=== PATIENT | male | born 1945 | race Caucasian/White ===

== ENCOUNTER 2017-03-07 07:21 | Inpatient (IN) | payer MEDICARE, OTHER ==
[2017-03-07] VITALS (13 sets, daily range): BP systolic 124–156; BP diastolic 80–102; PULSE 72–93; RESP 16–20; TEMP 98.1–98.6; O2SAT 96–97
[~2017-03-07] VITALS: Ht 172.7 cm; Wt 79.5 kg
[2017-03-07] MEDS ORDERED: IOHEXOL 350 MG/ML 50 ML BTL (for Cath Lab) OTHER ONE (07:22)
[2017-03-07 08:22] LABS: BASOPHIL % 0.5 % (0.0-2.0); HEMATOCRIT 39.4 % (39.0-51.0); HEMO FLAGS DIFF FINAL; LYMPH % 18.7 % (9.0-44.0); MEAN CELL VOLUME 99.5 FL (80.0-100.0); MEAN CORPUSCULAR HEMOGLOBIN 33.4 PG (27.0-34.0); MEAN CORPUSCULAR HGB CONC 33.6 % (32.0-36.0); MONO % 5.7 % (0.0-8.0); NEUT % 75.1 % (16.0-70.0); PLATELET COUNT 205 TH/MM3 (150-450); RED BLOOD COUNT 3.96 MIL/MM3 (4.50-5.90); RED CELL DISTRIBUTION WIDTH 13.2 % (11.6-17.2); WHITE BLOOD COUNT 10.6 TH/MM3 (4.0-11.0)
[2017-03-07 08:29] LABS: APTT (PATIENT) 30.3 SEC (24.3-30.1); INTERNATIONAL NORMALIZED RATIO 0.9 RATIO; PROTHROMBIN TIME - PATIENT 10.4 SEC (9.8-11.6)
[2017-03-07] MEDS: NS 1000P @30 MLS/HR (KVO) IV SCH (08:30)
[2017-03-07] MEDS ORDERED: ALBU0.08 NEB (08:44)
[2017-03-07] MEDS ORDERED: IPRA0.02 NEB (08:44)
[2017-03-07] MEDS ORDERED: GABA300C5 PO (08:44)
[2017-03-07] MEDS ORDERED: MELO-1 PO (08:44)
[2017-03-07] MEDS ORDERED: ASPI81CH37 CHEW (08:44)
[2017-03-07] MEDS ORDERED: NITR1SUB3 SL (08:44)
[2017-03-07] MEDS ORDERED: ATOR40TA16 PO (08:44)
[2017-03-07] MEDS ORDERED: ISOS30TA3 PO (08:44)
[2017-03-07] MEDS ORDERED: FURO40TA PO (08:44)
[2017-03-07] MEDS ORDERED: CARB200T PO (08:44)
[2017-03-07] MEDS ORDERED: ONDA1TAB17 PO (08:44)
[2017-03-07] MEDS ORDERED: TRAM50TA PO (08:44)
[2017-03-07] MEDS ORDERED: CLOP75TA PO (08:44)
[2017-03-07] MEDS ORDERED: PHEN100C PO (08:44)
[2017-03-07 08:54] LABS: BICARBONATE 27.4 MEQ/L (21.0-32.0); POTASSIUM 3.8 MEQ/L (3.5-5.1)
[2017-03-07] MEDS ORDERED: HEPARIN SODIUM - IV 10,000 UNITS/10 ML VIAL ONE (09:03)
[2017-03-07] MEDS ORDERED: HEPARIN-NS/PF INJ 1,000 ML ONE (09:03)
[2017-03-07] MEDS ORDERED: NITROGLYCERIN INJ 5 ML ONE (09:04)
[2017-03-07] MEDS ORDERED: HEPARIN-NS/PF INJ 500 ML ONE (09:23)
[2017-03-07] MEDS ORDERED: MIDAZOLAM HCL 2 MG/2 ML VIAL ONE (09:24)
[2017-03-07] MEDS ORDERED: HEPARIN-D5W 25,000 U/250 ML 250 ML ONE (10:04)
[2017-03-07] MEDS ORDERED: HEPARIN-D5W 25,000 U/250 ML 250 ML IV ONE (10:30)
[2017-03-07] MEDS ORDERED: MISC INFORMATION XX ONE (10:30)
[2017-03-07] MEDS ORDERED: BACITRACIN OINT 0.9 GM PKT TOP ONE ×2 (10:30→11:15)
--- NOTE | 2017-03-07 10:31 | CATHPROC ---
[facility] HIS Report Study Information Study Number Admission Scheduled Start Study Start [id number] Mar 07 2017 7:21AM 03/07/2017 Mar 07 2017 9:16AM [place] [facility] Cardiac Catheterization Admit Source Facility Department Other [facility] - Coding Specialist Physician and Clinical Staff Initial Jose Garcia Mri Special Procedures TechnologistJessica Schaffer,NASRIN Mri Special Procedures TechnologistRocio Hernandez RN Other Emre ALEXANDRA, Jameel Recorder Carli Cruz,SENIOR INTERACTIVE DEVELOPER TECH2 Scrub Raya Freed,RT(R) (BS) Procedures Performed Procedure Location (Site) Vessel Name Coronary Angiograms LCA Left Coronary Coronary Angiograms RCA Right Coronary Equipment Time Suture Polisher Description Size Mfg Part Number Used/Scraped TRANSDUCER, TRUWAVE [id number] 09:41 [employer] COLIN * Used W/STOCKCOCK *[id number] *[id number] *[id number] *[id number] 09:41 [employer]opio PACK, CCL CUSTOM * Used *[id number] 09:41 [employer] SUPPORT, ARTERIAL ADULT [id number] *[id number] Used [id number] 09:41 [employer] PACER PEN, SKIN DUAL W/ RULER * Used *[id number] BAND, RADIAL COMPRESSION TR [id number] 10:08 Spark Etail 29CM Used LARGE 29 *[id number] SHEATH, FR6 RADIAL PRELUDE 09:41 [employer] FR 6 [id number] Used EASE 11CM [id number] 09:41 [employer] WIRE, EXCHANGE 260CM 3MMJ 260CM Used *[id number] 09:41 [employer]COMED OMNIPAQUE, 350 MG, 150ML 150ML [id number] Used [id number] 09:41 [employer].S. BLANKET,WARM AIR CCL * Used *[id number] History: Current Medications Medication Dosage/Unit Route Frequency Last Date/Time Taken ASA Albuterol PLAVIX Statins (any) LASIX NTG SL TRAMADOL History: Allergies Allergy Reaction No Known Drug Allergies History: Risk Factors Family History of Hypertension Dyslipidemia Previous OK Previous Heart Failure Premature CAD No Yes No No No Prior Valve Prior PCI Prior CABG Surgery No No No Cerebrovascular Peripheral Artery Chronic Lung On Dialysis Diabetes Disease Disease Disease No No Yes Yes No History: Symptoms/Diagnosis Selection Items Chest pain SOB History: Stress Tests Stress or Imaging Studies Performed Yes Standard Exercise Stress Test No Stress Echo No Stress Test SPECT Stress Test SPECT Result Stress Test SPECT Ischemia Risk/Extent Yes Positive High Stress Test CMR No Cardiac CTA Coronary Calcium Score No No History: Other Current Smoker Method Quit Packs a Day Years Used Pack Years No Cigarettes 15 Years Ago 2 47 94 Labs Hgb (g/dl) Hct (%) RBC (MIL/MM3) WBC (l/cumm) Platelets (thousands) 11.60-17.00 35.00-51.00 4.00-5.90 4.00-11.00 150.00-450.00 13.2 39.4 3.9 10.6 205 Glucose (mg/dl) BUN (mg/dl) Creatinine (mg/dl) BUN:Creatinine (1:x) 74.00-106.00 7.00-18.00 0.50-1.30 10.00-20.00 99 15 0.8 18.8 Na (meq/l) K (meq/l) Cl (meq/l) CO2 (mmol/L) Ca (mg/dl) 136.00-145.00 3.50-5.10 98.00-107.00 21.00-32.00 8.50-10.10 140 3.8 106 27.4 9.1 PT (sec) PTT (sec) INR (PTT:PT) 9.80-11.60 24.30-30.10 0.90-1.10 10.4 30.3 0.9 CPK-MB (ng/ML) 0.50-3.60 Not Drawn Medication Medication Total Dose (Bolus/Oral) Medication Total Dosage/Unit 1% XYLOCAINE 20 mL FENTANYL 50 mcg HEPARIN 5000 units NTG (IC) 200 mcg OXYGEN 2 l/min VERSED 2 mg Medications (Bolus/Oral) Medication Time Given Dosage/Unit Administered By Reason OXYGEN 03/07/2017 9:31:11 AM 2 l/min Rocio Diaz 2 l/min OXYGEN given in lab by Rocio Diaz RN via Nasal. Ordered by Jose Ernandez. VERSED 03/07/2017 9:51:55 AM 2 mg Rocio Diaz 2 mg VERSED given in lab by Rocio Diaz, NASRIN in Left Antecubital via Peripheral IV. Ordered by Jose Stanley. FENTANYL 03/07/2017 9:53:53 AM 50 mcg Mrache, Rocio 50 mcg FENTANYL given in lab by Rocio Diaz, NASRIN in Left Antecubital via Peripheral IV. Ordered b y Jose Ernandez. 1% XYLOCAINE 03/07/2017 9:55:35 AM 20 mL Jose Ernandez 20 mL 1% XYLOCAINE given in lab by Jose Ernandez in Right Radial via Subcutaneous. Ordered by Jose Ernandez. NTG (IC) 03/07/2017 9:57:14 AM 200 mcg Jose Ernandez 200 mcg NTG (IC) given in lab by Jose Ernandez in Right Radial via Intra-arterial. Ordered by Jose Ernandez. HEPARIN 03/07/2017 9:58:03 AM 5000 units Rocio Diaz 5000 units HEPARIN given in lab by Rocio Diaz RN in Left Antecubital via Peripheral IV. Ordere d by Jose Ernandez. Medication (Drip) Medication Time Given Dosage/Unit Concentration/Unit Diluent (ml) Solution 03/07/2017 10:07:36 HEPARIN DRIP 1000 units/hr 01206 units 250 D5W AM 1000 units/hr HEPARIN DRIP given in lab by Rocio Diaz RN in Left Antecubital via Peripheral IV . Pump/Drip Flow = 10 ml/hr using [place] a [place] [address] units in 250 ml. Ordered by Jose Ernandez. IV Solutions 03/07/2017 9:23:46 AM 0 mL (IV) 500 NaCl .9 IV Solutions given in lab by Jessica Doss RN in Left Antecubital via Peripheral IV. Pump/Drip Ned w = 20 ml/hr using NaCl .9. Initial Case Assessment Cardiovascular HR Rhythm NIBP Chest Pain 71 sr 140/88 0 Circulatory - Right Pulses Dorsalis Pedis Femoral Radial 2 2 2 Scale (0,1,2,3,4,d) Scale (0,1,2,3,4,d) Neurological State Oriented to time-place- Alert Moves all extremities person Respiration - General Respiration Rate SpO2 (%) (B/min) 12 100 Final Case Assessment Cardiovascular HR Rhythm NIBP Chest Pain 78 sr 135/83 0 Circulatory - Right Pulses Dorsalis Pedis Femoral Radial 2 2 2 Scale (0,1,2,3,4,d) Scale (0,1,2,3,4,d) Neurological State Oriented to time-place- Alert Moves all extremities person Respiration - General Respiration Rate SpO2 (%) (B/min) 18 98 Chronological Log Time Study Chronological Log 9:18:35 Patient arrived via Bed. 9:18:43 Patient Name, D.O.B, / Armband Verified By R.N. 9:19:00 Skin Breakdown-none 9:21:47 Pre-op and post- op instructions given; patient acknowledges understanding of instructions. 9:21:48 Verbal Stimulation=2 Physical Stimulation=2 Airway=2 Respiration=2 TOTAL=8. (0=absent, 1=li mited, 2=present) 9:21:51 Presedation assessment performed by Coding Specialist RN. 9:22:13 Allens test performed on the right radial and ulnar artery. 9:23:29 Patient has been NPO for More than 6Hrs. 9:23:45 A # 20 IV was noted in the Antecubital (left). Grade = patent IV Solutions given in lab by Jessica Doss, RN in Left Antecubital via Peripheral IV. Pump/Dr ip Flow = 20 ml/hr using 9:23:46 NaCl .9. 9:23:46 History and physical on the chart or being dictated. 9:31:11 2 l/min OXYGEN given in lab by Rocio Diaz, NASRIN via Nasal. Ordered by Jose Ernandez. 9:32:35 Reference ECG taken Vitals capture started with the following parameters, Patient=Adult, Interval=5 min, Initial Pr yzerwx=643 mmHg, 9:32:39 Deflation Rate=5 mmHg, Cuff placed on Right Arm 9:32:50 Right groin and right radial prepped with 2% chlorhexidine, and draped after a 3 min. waitin g time. 9:33:15 HR=71 bpm, KLZZ=553/88 mmhg, SpO2=97.0 %, Resp=10 B/min Assessment: Initial Case, HR=71 BPM, Rhythm=sr, QZIZ=654/88 mmhg, Chest Pain=0 Right Pulses: Froylan Ped=2, Femoral=2, Radial=2 9:33:48 Neurological: State=Alert, Ox3, SOLORZANO Respiration: Resp=12 B/min, ZtD6=127 % 9:38:12 HR=72 bpm, XXHG=922/90 mmhg, MjR3=004.0 %, Resp=12 B/min 9:42:14 Pressure channel 1 zeroed. 9:43:11 HR=74 bpm, RZFB=581/89 mmhg, CaF3=071.0 %, Resp=18 B/min, Pain=0, Simpson=2 9:48:10 HR=71 bpm, YDKE=505/89 mmhg, OaT9=214.0 %, Resp=20 B/min, Pain=0, Simpson=2 9:50:09 MD arrived. 9:50:46 Consent signed by the physician and the patient and verified by the Coding Specialist staff. 9:51:55 2 mg VERSED given in lab by Rocio Diaz, NASRIN in Left Antecubital via Peripheral IV. Orde red by Jose Ernandez. 9:53:13 HR=77 bpm, UFMK=786/84 mmhg, SpO2=99.0 %, Resp=17 B/min, Pain=0, Simpson=2 9:53:42 Leticia Prominences Protected 50 mcg FENTANYL given in lab by Rocio Diaz, NASRIN in Left Antecubital via Peripheral IV. Ord ered by Awais 9:53:53 Jose. Time Out. Correct patient, correct procedure, correct physician, power injector loaded, or not loaded with contrast with 9:54:52 surgical team present. Time Out Concurred by MD and individual staff in procedure. 9:55:27 Case Start 9:55:35 20 mL 1% XYLOCAINE given in lab by Jose Ernandez in Right Radial via Subcutaneous. Ordered by Jose Enrandez. 9:56:48 Access site was Radial Artery. A SHEATH, FR6 RADIAL PRELUDE EASE 11CM FR 6 was advanced into the Radial (right) using the Perc utaneous 9:56:55 technique. 9:57:14 200 mcg NTG (IC) given in lab by Jose Ernandez in Right Radial via Intra-arterial. Ordered by Jose Ernandez. 5000 units HEPARIN given in lab by Rocio Diaz, NASRIN in Left Antecubital via Peripheral IV. Ordered by Awais 9:58:03 Jose. 9:58:12 HR=81 bpm, TZHA=556/84 mmhg, SpO2=97.0 %, Resp=19 B/min, Pain=0, Simpson=2 9:58:15 A catheter was advanced over a wire. OMNIPAQUE, 350 MG, 150ML 150ML was used for injections. Recorded Pressure: LV, HR=77, Condition=Condition 1 9:59:00 (Left Ventricle) LV 111/-1/4 Recorded Pressure: LV, Ao, HR=79, Condition=Condition 1 9:59:06 (Left Ventricle) LV 111/-5/0, (Aorta) Ao 110/67/86 10:00:09 The RCA was injected and visualized at various angles. OMNIPAQUE, 350 MG, 150ML 150ML used . After removing the current catheter a JL 3.5 INFINITI CATHETER FR 5 was advanced over a WIRE, E XCHANGE 260CM 10:01:11 3MMJ 260CM. 10:01:50 The LCA was injected and visualized at various angles. OMNIPAQUE, 350 MG, 150ML 150ML used . 10:03:11 HR=84 bpm, RXVK=040/84 mmhg, SpO2=97 %, Resp=18 B/min 10:03:56 Catheter was removed 10:04:50 Case End Radial Compression Device Used. 13 mLs of air placed in BAND, RADIAL COMPRESSION TR LARGE 29 2 9CM. Affected 10:06:41 hand 98 % O2 saturation. 1000 units/hr HEPARIN DRIP given in lab by Rocio Diaz RN in Left Antecubital via Periph eral IV. Pump/Drip Flow 10:07:36 = 10 ml/hr [place] [address] units in 250 ml. Ordered by Jose Ernandez. 10:08:12 HR=80 bpm, FWVS=123/86 mmhg, SpO2=97.0 %, Resp=14 B/min 10:13:15 HR=79 bpm, YUOV=872/83 mmhg, SpO2=98 %, Resp=15 B/min 10:14:01 No case complications noted. 10:14:03 Cine recording checked. 10:14:04 Bedside Report will be given. Assessment: Final Case, HR=78 BPM, Rhythm=sr, NPYQ=159/83 mmhg, Chest Pain=0 Right Pulses: Froylan Ped=2, Femoral=2, Radial=2 10:14:10 Neurological: State=Alert, Ox3, SOLORZANO Respiration: Resp=18 B/min, SpO2=98 % 10:18:33 Patient moved to bed 10:18:50 Patient transported to DOCU. End Study - Contrast Media Used In Study Contrast Total Opened (mL) Total Used (mL) Total Wasted (mL) Omnipaque 30 30 0 End Study - Maximum Contrast Load Max Contrast Load (mL) 443.8 End Study - Radiation Exposure Fluoro Time (minutes) 2.1 End Study - Sheaths Sheaths Pulled By Sheath Hold Time (min) Raya Freed End Study - Patient Disposition Complications Transferred To Interventional Outcome No Telemetry Bed No attempt made
--- NOTE | 2017-03-07 10:43 | MA ---
cc: DARRYL KIRK DATE: 03/07/2017 PROCEDURE PERFORMED 1. Fluoroscopy with interpretation. 2. Left heart catheterization. 3. Coronary angiography. METHOD The risks, benefits and alternatives were discussed with the patient. The patient understood and consented to the procedure. The patient was brought into the catheterization lab and placed on the catheterization table. The right wrist was prepped and draped in a sterile fashion. The right wrist was anesthetized with 2% lidocaine. The right radial artery was cannulated and a 6 [place], 7 cm sheath was placed without difficulty. LEFT HEART CATHETERIZATION Intraventricular hemodynamics measured 111/0 mmHg. CORONARY ANGIOGRAPHY 1. The left main coronary has a 90% distal stenosis with heavy calcium present just prior to the bifurcation. 2. The left anterior descending coronary has some mild luminal irregularities. Estimated severity 30% in the midsegment. There is a diagonal branch with minor luminal irregularities. 3. The left circumflex also has 30% stenosis throughout. 4. The right coronary is a dominant vessel giving rise to a posterior descending branch. The mid right coronary has a 99% eccentric heavily calcified stenosis. CONCLUSIONS 1. Severe left main and right coronary artery disease. 2. Normal left-sided filling pressures. PLAN Will obtain an urgent cardiac surgical consultation. The patient's initiated on a heparin drip. He is currently symptom-free, hemodynamically stable. Will obtain a 2-D echocardiogram. Will keep him n.p.o. Obviously plan for admission and coronary artery bypass surgery in the near future. MD FAVIOLA Valadez/HERBERT /10:24 AM /10:32 AM
--- NOTE | 2017-03-07 12:17 | ECHRPT ---
Indication: CAD/EF CONCLUSIONS Normal left ventricular size. Mild concentric left ventricular hypertrophy. No regional wall motion abnormalities are present. Trace mitral valve regurgitation. Trace aortic valve regurgitation. The pulmonary valve is not well visualized. BP: 124 / 80 HR: 95 Rhythm: Sinus Technical Quality:Fair FINDINGS LEFT VENTRICLE The left ventricular systolic function is normal with an estimated ejection fraction in the range of 60-65%. Normal left ventricular size. Mild concentric left ventricular hypertrophy. No regional wall motion abnormalities are present. RIGHT VENTRICLE Normal right ventricular size and systolic function. LEFT ATRIUM The left atrial size is normal. RIGHT ATRIUM The right atrial size is normal. ATRIAL SEPTUM Normal atrial septal thickness without atrial level shunting by limited color doppler interrogation. AORTA The aortic root and proximal ascending aorta are normal in size on limited imaging. MITRAL VALVE Structurally normal mitral valve. Trace mitral valve regurgitation. AORTIC VALVE Trileaflet aortic valve. Trace aortic valve regurgitation. TRICUSPID VALVE Structurally normal tricuspid valve. No tricuspid valve stenosis or regurgitation. PULMONARY VALVE The pulmonary valve is not well visualized. VESSELS The inferior vena cava is normal in size. PERICARDIUM No pericardial effusion. Mazin Chu MD (Electronically Signed) Final Date:07 March 2017 12:16
[2017-03-07 14:23] LABS: P2Y12 REACTION UNITS (PRU) 44 PRU (194-418)
[2017-03-07] MEDS ORDERED: CEFAZOLIN INJ 500 MG in SODIUM CHLORIDE 0.9% IRR BTL 500 ML IRRIGATION SCH (14:30)
[2017-03-07] MEDS ORDERED: ceFAZolin 2 GM PREMIX 50 ML IV SCH (14:30)
[2017-03-07] MEDS ORDERED: CHLORHEXIDINE GLUCONATE 4% SOLN 120 ML BTL TOPICAL SCH (14:30)
[2017-03-07] MEDS ORDERED: METOPROLOL TARTRATE 25 MG TAB PO SCH (14:30)
[2017-03-07] MEDS ORDERED: INSULIN REGULAR (IV INFUSION) 100 UNITS in SODIUM CHLORIDE 0.9% INJ 99 ML IV PRN (14:30)
[2017-03-07] MEDS ORDERED: PAPAVERINE INJ 60 MG, NITROGLYCERIN INJ 100 MCG, DILTIAZEM INJ 100 MG in SODIUM CHLORID... IRRIGATION SCH (14:30)
[2017-03-07] MEDS ORDERED: SODIUM CHLORIDE 0.9% FLUSH 10 ML FLUSH IV FLUSH PRN (14:30)
--- NOTE | 2017-03-07 14:44 | PD.CAR.PN ---
CVT Progress Note Subjective/Hospital Course: sts data discussed with pt RISK SCORES About the STS Risk Calculator Procedure: CAB Only Risk of Mortality: 1.368% Morbidity or Mortality: 11.444% Long Length of Stay: 4.682% Short Length of Stay: 51.182% Permanent Stroke: 0.81% Prolonged Ventilation: 8.076% DSW Infection: 0.398% Renal Failure: 1.373% Reoperation: 5.357% Objective: Vital Signs Date Time Temp Pulse Resp B/P (MAP) Pulse Ox O2 Delivery O2 Flow Rate FiO2 03/07/17 14:00 74 03/07/17 14:00 98.2 72 18 138/86 (103) 96 03/07/17 10:25 98 Room Air 03/07/17 08:17 98.1 75 17 124/80 (95) 96 Labs: Laboratory Tests Test 03/07/17 08:00 03/07/17 13:51 White Blood Count 10.6 TH/MM3 (4.0-11.0) Red Blood Count 3.96 MIL/MM3 (4.50-5.90) Hemoglobin 13.2 GM/DL (13.0-17.0) Hematocrit 39.4 % (39.0-51.0) Mean Corpuscular Volume 99.5 FL (80.0-100.0) Mean Corpuscular Hemoglobin 33.4 PG (27.0-34.0) Mean Corpuscular Hemoglobin Concent 33.6 % (32.0-36.0) Red Cell Distribution Width 13.2 % (11.6-17.2) Platelet Count 205 TH/MM3 (150-450) Mean Platelet Volume 9.7 FL (7.0-11.0) Neutrophils (%) (Auto) 75.1 % (16.0-70.0) Lymphocytes (%) (Auto) 18.7 % (9.0-44.0) Monocytes (%) (Auto) 5.7 % (0.0-8.0) Eosinophils (%) (Auto) 0.0 % (0.0-4.0) Basophils (%) (Auto) 0.5 % (0.0-2.0) Neutrophils # (Auto) 8.0 TH/MM3 (1.8-7.7) Lymphocytes # (Auto) 2.0 TH/MM3 (1.0-4.8) Monocytes # (Auto) 0.6 TH/MM3 (0-0.9) Eosinophils # (Auto) 0.0 TH/MM3 (0-0.4) Basophils # (Auto) 0.0 TH/MM3 (0-0.2) CBC Comment DIFF FINAL Differential Comment Prothrombin Time 10.4 SEC (9.8-11.6) Prothromb Time International Ratio 0.9 RATIO Activated Partial Thromboplast Time 30.3 SEC (24.3-30.1) Blood Urea Nitrogen 15 MG/DL (7-18) Creatinine 0.81 MG/DL (0.60-1.30) Random Glucose 99 MG/DL (74-106) Calcium Level 9.1 MG/DL (8.5-10.1) Sodium Level 140 MEQ/L (136-145) Potassium Level 3.8 MEQ/L (3.5-5.1) Chloride Level 106 MEQ/L (98-107) Carbon Dioxide Level 27.4 MEQ/L (21.0-32.0) Anion Gap 7 MEQ/L (5-15) Estimat Glomerular Filtration Rate 94 ML/MIN (>89) Platelet Function P2Y12 React Units 44 PRU (194-418) Result Diagram: 03/07/17 0800 03/07/17 0800 Zoe Whitney Mar 07, 2017 14:44
[2017-03-07] MEDS: carBAMazepine 200 MG TAB PO SCH ×2 (14:45→19:48)
[2017-03-07] MEDS ORDERED: RESP: ALBUTEROL 2.5 MG/IPRATROPIUM 0.5 MG NEB (PRN) NEB (14:45)
[2017-03-07] MEDS ORDERED: ENALAPRILAT 1.25 MG/ML VIAL IV PUSH PRN (15:15)
[2017-03-07] MEDS ORDERED: SENNOSIDES 8.6 MG TAB PO PRN (15:15)
[2017-03-07] MEDS ORDERED: BISACODYL 10 MG SUPP RECTAL PRN (15:15)
[2017-03-07] MEDS ORDERED: MAGNESIUM HYDROXIDE SUSP 30 ML CUP PO PRN (15:15)
[2017-03-07] MEDS ORDERED: cloNIDine HCL 0.1 MG TAB PO PRN (15:15)
--- NOTE | 2017-03-07 15:21 | PD.CONS ---
HPI Service [facility] Consult Requested By Dr. Ernandez Reason for Consult Medical management Primary Care Physician Jesica Griggs M.D. Diagnoses: History of Present Illness This is a 71-year-old male who underwent elective cardiac catheterization showing two-vessel disease and has been referred for CABG. Patient complains of dyspnea on exertion associated with nocturnal chest tightness and leg cramping. No radiation of pain, nausea, vomiting, palpitations and dizziness. He underwent stress stress which he did not tolerate and developed chest pain, back pain and leg cramping. 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 Patient has history of seizure disorder with last seizure episode years ago maintained on Dilantin, Tegretol and Neurontin. He also has COPD not oxygen dependent on nebulizations. He has quit smoking 10 years ago has a history of 60-80 pack years. He also has hyperlipidemia on Lipitor. Patient states he just had extensive blood work 2 weeks ago by his PCP. At this time patient has no complaints. Seen with his . Case discussed with his RN. Outside records reviewed. Patient also has history of BPH, ectatic aorta, peripheral vascular disease and skin cancer. All other systems reviewed negative Review of Systems Except as stated in HPI: all other systems reviewed are Neg Past Family Social History Allergies: Coded Allergies: No Known Drug Allergies (Verified Allergy, Unknown, 03/07/17) Past Medical History As previously mentioned Past Surgical History Colonoscopy, hernia repair, tonsillectomy and orthopedic surgery Reported Medications Phenytoin Extended 100 Mg Cap 200 Mg PO BID NEB Carbamazepine 200 Mg Tab 200 Mg PO BID Clopidogrel (Clopidogrel Bisulfate) 75 Mg Tab 75 Mg PO DAILY Atorvastatin (Atorvastatin Calcium) 40 Mg Tab 40 Mg PO HS Ondansetron (Ondansetron HCl) 8 Mg Tab 4 Mg PO Q6HR Tramadol (Tramadol HCl) 50 Mg Tab 100 Mg PO Q6H PRN Furosemide 40 Mg Tab 40 Mg PO DAILY Meloxicam 15 Mg Tab 15 Mg PO DAILY Gabapentin 300 Mg Cap 300 Mg PO HS Ipratropium Neb (Ipratropium [place]) 0.5 Mg/2.5 Ml Amp 0.5 Mg NEB Q6HR NEB Albuterol Neb (Albuterol Sulfate) 2.5 Mg/3 Ml Neb 2.5 Mg NEB QID NEB Nitroglycerin SL (Nitroglycerin) 0.4 Mg Subl 0.4 Mg SL DIRECTED PRN ONE TABLET UNDER THE TONGUE NEEDED FOR CHEST PAIN, MAY REPEAT EVERY FIVE MINUTES FOR A TOTAL OF 3 DOSES OR CALL 911 IF NO RELIEF Aspirin Low Dose (Aspirin) 81 Mg Chew 81 Mg CHEW DAILY Isosorbide Mononitrate ER (Isosorbide Mononitrate) 30 Mg Cyn 30 Mg PO DAILY Family History No CAD Social History As previously mentioned. Does not drink. Lives with his Physical Exam Vital Signs Vital Signs Date Time Temp Pulse Resp B/P (MAP) Pulse Ox O2 Delivery O2 Flow Rate FiO2 03/07/17 14:00 74 03/07/17 14:00 98.2 72 18 138/86 (103) 96 03/07/17 10:25 98 Room Air 03/07/17 08:17 98.1 75 17 124/80 (95) 96 Physical Exam GENERAL: This is a well-nourished, well-developed patient, in no apparent distress. SKIN: No rashes, ecchymoses or lesions. Cool and dry. HEAD: Atraumatic. Normocephalic. No temporal or scalp tenderness. EYES: Pupils equal round and reactive. Extraocular motions intact. No scleral icterus. No injection or drainage. ENT: Nose without bleeding, purulent drainage or septal hematoma. Throat without erythema, tonsillar hypertrophy or exudate. Uvula midline. Airway patent. NECK: Trachea midline. No JVD or lymphadenopathy. Supple, nontender, no meningeal signs. CARDIOVASCULAR: Regular rate and rhythm without murmurs, gallops, or rubs. RESPIRATORY: Coarse breath sounds Breath sounds equal bilaterally. GASTROINTESTINAL: Abdomen soft, non-tender, nondistended. No guarding. MUSCULOSKELETAL: Extremities without clubbing, cyanosis, or edema. No joint tenderness, effusion, or edema noted. No calf tenderness. Negative Homans sign bilaterally. NEUROLOGICAL: Awake and alert. Cranial nerves II through XII intact. Motor and sensory grossly within normal limits. Five out of 5 muscle strength in all muscle groups. Normal speech. Laboratory Laboratory Tests Test 03/07/17 08:00 03/07/17 13:51 White Blood Count 10.6 Red Blood Count 3.96 Hemoglobin 13.2 Hematocrit 39.4 Mean Corpuscular Volume 99.5 Mean Corpuscular Hemoglobin 33.4 Mean Corpuscular Hemoglobin Concent 33.6 Red Cell Distribution Width 13.2 Platelet Count 205 Mean Platelet Volume 9.7 Neutrophils (%) (Auto) 75.1 Lymphocytes (%) (Auto) 18.7 Monocytes (%) (Auto) 5.7 Eosinophils (%) (Auto) 0.0 Basophils (%) (Auto) 0.5 Neutrophils # (Auto) 8.0 Lymphocytes # (Auto) 2.0 Monocytes # (Auto) 0.6 Eosinophils # (Auto) 0.0 Basophils # (Auto) 0.0 CBC Comment DIFF FINAL Differential Comment Prothrombin Time 10.4 Prothromb Time International Ratio 0.9 Activated Partial Thromboplast Time 30.3 Blood Urea Nitrogen 15 Creatinine 0.81 Random Glucose 99 Calcium Level 9.1 Sodium Level 140 Potassium Level 3.8 Chloride Level 106 Carbon Dioxide Level 27.4 Anion Gap 7 Estimat Glomerular Filtration Rate 94 Platelet Function P2Y12 React Units 44 Result Diagram: 03/07/17 0800 03/07/17 08 Assessment and Plan Problem List: (1) CAD (coronary artery disease) ICD Code: I25.10 - Atherosclerotic heart disease of [place] coronary artery without angina pectoris Assessment and Plan This is a 71-year-old male with history of peripheral vascular disease, ectatic aorta, BPH, skin cancer, seizure disorder, COPD and hyperlipidemia. He underwent elective cardiac catheterization showing two-vessel disease and has been referred for CABG. CAD status post cardiac catheterization. Continue aspirin, Imdur, Lipitor and heparin drip. Seizure disorder with last seizure episode years ago maintained on Dilantin, Tegretol and Neurontin. Stable seizure precautions COPD not oxygen dependent on nebulizations. He has quit smoking 10 years ago has a history of 60-80 pack years. Stable Hyperlipidemia on Lipitor. We'll request records from his PCP DVT prophylaxis on heparin drip Discussed Condition With Patient and Last Penny MD Mar 07, 2017 15:21
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
[2017-03-07 17:21] LABS: APTT (PATIENT) 44.2 SEC (24.3-30.1)
--- NOTE | 2017-03-07 19:09 | RADRPT ---
EXAM DATE/TIME: 03/07/2017 18:24 [facility] COMPARISON: No previous studies available for comparison. INDICATIONS : Pre-op cardiac surgery. MEDICAL HISTORY : Chronic obstructive pulmonary disease. Angina. Peripheral vascular disease. Carcinoma, skin. SURGICAL HISTORY : None. ENCOUNTER: Initial ACUITY: 1 day PAIN SCORE: 0/10 LOCATION: Bilateral legs. TECHNIQUE: Venous ultrasound of the left and right leg was performed from the inguinal ligament to the proximal calf. Real-time, color Doppler and spectral tracing, compression and augmentation techniques were us ed. FINDINGS: RIGHT LEG: There is normal compressibility of the deep venous system from the inguinal region to the proximal ca lf. No echogenic clot is seen in the lumen of the common femoral, femoral, popliteal, and posterior tibial veins. There is a normal response of the venous system to proximal and distal augmentation an d respiration. LEFT LEG: There is normal compressibility of the deep venous system from the inguinal region to the proximal ca lf. No echogenic clot is seen in the lumen of the common femoral, femoral, popliteal, and posterior tibial veins. There is a normal response of the venous system to proximal and distal augmentation an d respiration. CONCLUSION: Normal examination. Alex De La Torre MD on March 07, 2017 at 19:07 Board Certified Radiologist. This report was verified electronically.
[2017-03-07] MEDS: RESP: ALBUTEROL 2.5 MG/IPRATROPIUM 0.5 MG NEB (SCH) NEB (19:19)
[2017-03-07] MEDS: GABAPENTIN 300 MG CAP PO SCH (19:39)
[2017-03-07] MEDS: ATORVASTATIN 40 MG TAB PO SCH (19:39)
[2017-03-07] MEDS: PHENYTOIN SODIUM 100 MG CAP PO SCH (19:40)
[2017-03-07] MEDS: METOPROLOL TARTRATE 25 MG TAB PO SCH (19:41)
[2017-03-07] MEDS: SODIUM CHLORIDE 0.9% FLUSH 10 ML FLUSH IV FLUSH SCH (19:43)
[2017-03-07] MEDS: DOCUSATE SODIUM 50 MG/SENNA 8.6 MG TAB PO SCH (19:48)
[2017-03-07] MEDS: NITROGLYCERIN 0.4 MG SL 25 TABS/BTL SL PRN (19:50)
[2017-03-07] MEDS ORDERED: PHENYTOIN SODIUM 100 MG CAP PO SCH ×2 (20:00→21:00)
[2017-03-07] MEDS: LORazepam 2 MG/ML VIAL IV PRN (20:47)
--- NOTE | 2017-03-07 20:50 | RADRPT ---
EXAM DATE/TIME: 03/07/2017 18:06 [facility] COMPARISON: No previous studies available for comparison. INDICATIONS : Pre-op cardiac surgery. MEDICAL HISTORY : Chronic obstructive pulmonary disease. Angina. Peripheral vascular disease. Carcinoma, skin. SURGICAL HISTORY : None. ENCOUNTER: Initial ACUITY: 1 day PAIN SCORE: 0/10 LOCATION: Bilateral neck PEAK SYSTOLIC VELOCITIES (cm/sec): ICA/CCA RATIO: Right: 0.8 Left: 1.0 ICA: Right: 82.0 Left: 92.7 CCA: Right: 104.3 Left: 90.1 ECA: Right: 97.9 Left: 103.1 VERTEBRAL: Right: 39.6 antegrade Left: 45.9 antegrade Elevated flow velocities and ICA/CCA ratios have been found to correlate with increased degrees of vessel stenosis, calculated as percentage of diameter relative to a normal segment of distal ICA/CCA FINDINGS: RIGHT CAROTID: No significant stenosis is visualized. The waveforms are within normal limits. Minimal nonstenotic p laque initial segment of the internal carotid LEFT CAROTID: No significant stenosis is visualized. The waveforms are within normal limits. Minimal nonstenotic p laquing at the bulb and initial segment the internal carotid VERTEBRAL ARTERIES: Antegrade flow is seen in both vertebral arteries. MISCELLANEOUS: None. CONCLUSION: No evidence of anatomic or physiologic stenosis. Minimal nonstenotic atherosclerotic plaquing of the right inte rnal carotid initial segment and the left bulb as well as initial segment of the internal carotid Alex De La Torre MD on March 07, 2017 at 20:47 Board Certified Radiologist. This report was verified electronically.
[2017-03-07] MEDS ORDERED: NITROGLYCERIN 2% OINT 1 GM PACKET TOPICAL SCH (21:00)
--- NOTE | 2017-03-07 22:55 | RADRPT ---
EXAM DATE/TIME: 03/07/2017 18:32 [facility] COMPARISON: No previous studies available for comparison. INDICATIONS : Pre-op cardiac surgery. MEDICAL HISTORY : Chronic obstructive pulmonary disease. Angina. Peripheral vascular disease. Carcinoma, skin. SURGICAL HISTORY : None. ENCOUNTER: Initial ACUITY: 1 day PAIN SCORE: 0/10 LOCATION: Bilateral legs. GREATER SAPHENOUS VEIN THIGH: PROXIMAL: Right 5 mm Left 9 mm MID: Right 2 mm Left 3 mm DISTAL: Right 2 mm Left 4 mm CALF: PROXIMAL: Right 1 mm Left 2 mm MID: Right Non-visualized Left 1 mm DISTAL: Right Non-visualized Left 2 mm FINDINGS: The venous system of the lower extremities are patent by color Doppler imaging. Measurements of the leg veins (in mm) are listed above. CONCLUSION: Venous mapping exam is described. Isaac Nettles MD on March 07, 2017 at 22:53 Board Certified Radiologist. This report was verified electronically.
[2017-03-07 23:59] LABS: APTT (PATIENT) 38.5 SEC (24.3-30.1)
[2017-03-08] VITALS (23 sets, daily range): BP systolic 105–142; BP diastolic 66–82; PULSE 67–96; RESP 16–18; TEMP 98–98.8; O2SAT 93–98
[2017-03-08] MEDS: LORazepam 2 MG/ML VIAL IV PRN (03:10)
[2017-03-08 07:11] LABS: AUTOMATED NEUTROPHIL # 7.9 TH/MM3 (1.8-7.7); BASOPHIL % 0.2 % (0.0-2.0); HEMATOCRIT 37.3 % (39.0-51.0); HEMO FLAGS DIFF FINAL; LYMPH % 15.3 % (9.0-44.0); LYMPHOCYTE # 1.5 TH/MM3 (1.0-4.8); MEAN CELL VOLUME 98.9 FL (80.0-100.0); MEAN CORPUSCULAR HEMOGLOBIN 33.8 PG (27.0-34.0); MEAN CORPUSCULAR HGB CONC 34.2 % (32.0-36.0); MONO % 3.2 % (0.0-8.0); NEUT % 81.3 % (16.0-70.0); PLATELET COUNT 171 TH/MM3 (150-450); RED BLOOD COUNT 3.77 MIL/MM3 (4.50-5.90); WHITE BLOOD COUNT 9.7 TH/MM3 (4.0-11.0)
[2017-03-08 07:16] LABS: APTT (PATIENT) 42.4 SEC (24.3-30.1)
[2017-03-08 07:36] LABS: BICARBONATE 25.9 MEQ/L (21.0-32.0)
[2017-03-08] MEDS: RESP: ALBUTEROL 2.5 MG/IPRATROPIUM 0.5 MG NEB (SCH) NEB ×3 (07:38→19:55)
[2017-03-08] MEDS: NS 1000P @30 MLS/HR (KVO) IV SCH (08:30)
[2017-03-08] MEDS ORDERED: PILL SPLITTER OTHER PRN (08:45)
[2017-03-08] MEDS: SODIUM CHLORIDE 0.9% FLUSH 10 ML FLUSH IV FLUSH SCH ×2 (09:00→20:01)
[2017-03-08] MEDS ORDERED: PHENYTOIN SODIUM 100 MG CAP PO SCH (09:00)
[2017-03-08] MEDS: carBAMazepine 200 MG TAB PO SCH ×2 (09:51→19:59)
[2017-03-08] MEDS: ASPIRIN 81 MG CHEW TAB CHEW SCH (09:51)
[2017-03-08] MEDS: METOPROLOL TARTRATE 25 MG TAB PO SCH ×2 (09:52→20:00)
[2017-03-08] MEDS: ISOSORBIDE MONONITRATE 30 MG TAB PO SCH (09:52)
[2017-03-08] MEDS: DOCUSATE SODIUM 50 MG/SENNA 8.6 MG TAB PO SCH ×2 (09:52→20:00)
--- NOTE | 2017-03-08 10:13 | PD.CARD.PN ---
Subjective Subjective Remarks No chest pain, feeling well. Objective Medications Current Medications Medications (Trade) Dose Ordered Sig/Joselo Route Start Time Stop Time Status Last Admin Sodium Chloride 1,000 ml @ 30 mls/hr Q24H IV 03/07/17 08:30 03/07/17 08:30 Heparin Sodium/ Dextrose 250 ml @ 9.264 mls/ hr TITRATE ONCE IV 03/07/17 10:30 03/08/17 13:29 (NS Flush) 2 ml BID IV FLUSH 03/07/17 21:00 03/08/17 09:00 (NS Flush) 2 ml UNSCH PRN IV FLUSH 03/07/17 14:30 Papaverine HCl 60 mg/Nitroglycerin 100 mcg/Diltiazem HCl 100 mg/Sodium Chloride 100 ml @ 0 mls/hr STRAPPING MACHINE TENDER IRRIGATION 03/07/17 14:30 03/14/17 14:29 Cefazolin Sodium 500 mg/Sodium Chloride 505 ml @ 0 mls/hr STRAPPING MACHINE TENDER IRRIGATION 03/07/17 14:30 03/14/17 14:29 Cefazolin Sodium/ Dextrose 50 ml @ 150 mls/hr STRAPPING MACHINE TENDER IV 03/07/17 14:30 03/14/17 14:29 (Lopressor) 12.5 mg STRAPPING MACHINE TENDER PO 03/07/17 14:30 03/14/17 14:29 (Hibiclens 4% Top Soln) 1 applic STRAPPING MACHINE TENDER TOPICAL 03/07/17 14:30 03/14/17 14:29 Insulin Human Regular 100 units/ Sodium Chloride 100 ml @ 3 mls/hr TITRATE PRN IV 03/07/17 14:30 03/14/17 14:29 (Aspirin Chew) 81 mg DAILY CHEW 03/08/17 09:00 03/08/17 09:51 (Lipitor) 40 mg HS PO 03/07/17 21:00 03/07/17 19:39 (TEGretol) 200 mg BID PO 03/07/17 14:45 03/08/17 09:51 (Neurontin) 300 mg HS PO 03/07/17 21:00 03/07/17 19:39 (Imdur) 30 mg DAILY PO 03/08/17 09:00 03/08/17 09:52 (Nitrostat Sl) 0.4 mg Q5M PRN SL 03/07/17 14:45 03/07/17 19:50 (Lopressor) 12.5 mg Q12HR PO 03/07/17 21:00 03/08/17 09:52 (Duoneb Neb) 1 ampule Q6HR WHILE AWAKE NEB NEB 03/07/17 20:00 03/08/17 07:38 (Duoneb Neb) 1 ampule Q2HR NEB PRN NEB 03/07/17 14:45 (Dilantin) 400 mg HS PO 03/07/17 21:00 03/07/17 19:40 (Dorina-Colace) 1 tab BID PO 03/07/17 21:00 03/08/17 09:52 (Milk Of Magnesia Liq) 30 ml Q12H PRN PO 03/07/17 15:15 (Senokot) 17.2 mg Q12H PRN PO 03/07/17 15:15 (Dulcolax Supp) 10 mg DAILY PRN RECTAL 03/07/17 15:15 (Vasotec Inj) 1.25 mg Q6H PRN IV PUSH 03/07/17 15:15 03/07/17 17:40 (Catapres) 0.1 mg Q6H PRN PO 03/07/17 15:15 (Ativan Inj) 1 mg Q2H PRN IV 03/07/17 20:30 03/08/17 03:10 (Pill Splitter) 1 ea UNSCH PRN OTHER 03/08/17 08:45 Vital Signs / I&O Vital Signs Date Time Temp Pulse Resp B/P (MAP) Pulse Ox O2 Delivery O2 Flow Rate FiO2 03/08/17 09:43 98.3 83 16 128/82 (97) 93 03/08/17 09:00 80 03/08/17 08:00 67 03/08/17 07:00 68 03/08/17 06:00 71 03/08/17 05:00 72 03/08/17 04:00 73 03/08/17 04:00 98.0 73 18 110/66 (81) 96 03/08/17 04:00 Room Air 03/08/17 03:00 74 03/08/17 02:00 71 03/08/17 01:00 70 03/08/17 00:00 Room Air 03/08/17 00:00 74 03/08/17 00:00 98.1 74 18 105/66 (79) 96 03/07/17 23:00 80 03/07/17 22:00 82 03/07/17 21:00 93 03/07/17 20:00 98.6 75 20 147/89 (108) 97 03/07/17 20:00 75 03/07/17 19:22 96 03/07/17 18:00 84 03/07/17 17:45 148/88 (108) 03/07/17 17:35 156/102 (120) 03/07/17 17:00 78 03/07/17 16:00 98.1 75 16 140/86 (104) 97 03/07/17 16:00 72 03/07/17 15:00 74 03/07/17 14:00 74 03/07/17 14:00 74 03/07/17 14:00 98.2 72 18 138/86 (103) 96 03/07/17 10:25 98 Room Air I/O 03/07/17 03/07/17 03/07/17 03/08/17 03/08/17 03/08/17 07:00 15:00 23:00 07:00 15:00 23:00 Intake Total 920 ml 340 ml Output Total 700 ml 600 ml Balance 220 ml -260 ml Intake Oral 420 ml 240 ml IV Total 500 ml 100 ml Output Urine Total 700 ml 600 ml # Bowel Movements 0 0 Physical Exam GENERAL: This is a well-nourished, well-developed patient, in no apparent distress. CARDIOVASCULAR: Regular rate and rhythm without murmurs, gallops, or rubs. RESPIRATORY: Clear to auscultation. Breath sounds equal bilaterally. No wheezes , rales, or rhonchi. GASTROINTESTINAL: Abdomen soft, non-tender, nondistended. Normal active bowel sounds MUSCULOSKELETAL: Extremities without clubbing, cyanosis, or edema. NEURO: Alert & Oriented x4 to person, place, time, situation. Moves all ext x4 Laboratory Laboratory Tests Test 03/07/17 13:51 03/07/17 16:55 03/07/17 22:55 03/08/17 05:12 Platelet Function P2Y12 React Units 44 PRU Activated Partial Thromboplast Time 44.2 SEC 38.5 SEC White Blood Count 9.7 TH/MM3 Red Blood Count 3.77 MIL/MM3 Hemoglobin 12.7 GM/DL Hematocrit 37.3 % Mean Corpuscular Volume 98.9 FL Mean Corpuscular Hemoglobin 33.8 PG Mean Corpuscular Hemoglobin Concent 34.2 % Red Cell Distribution Width 13.0 % Platelet Count 171 TH/MM3 Mean Platelet Volume 10.8 FL Neutrophils (%) (Auto) 81.3 % Lymphocytes (%) (Auto) 15.3 % Monocytes (%) (Auto) 3.2 % Eosinophils (%) (Auto) 0.0 % Basophils (%) (Auto) 0.2 % Neutrophils # (Auto) 7.9 TH/MM3 Lymphocytes # (Auto) 1.5 TH/MM3 Monocytes # (Auto) 0.3 TH/MM3 Eosinophils # (Auto) 0.0 TH/MM3 Basophils # (Auto) 0.0 TH/MM3 CBC Comment DIFF FINAL Differential Comment Test 03/08/17 05:21 Activated Partial Thromboplast Time 42.4 SEC Blood Urea Nitrogen 12 MG/DL Creatinine 0.58 MG/DL Random Glucose 106 MG/DL Calcium Level 9.0 MG/DL Sodium Level 141 MEQ/L Potassium Level 4.0 MEQ/L Chloride Level 109 MEQ/L Carbon Dioxide Level 25.9 MEQ/L Anion Gap 6 MEQ/L Estimat Glomerular Filtration Rate 138 ML/MIN Imaging Last Impressions Lower Extremity Ultrasound 03/07/17 0000 Signed Impressions: Service Date/Time: Tuesday, March 07, 2017 18:32 - CONCLUSION: Venous mapping exam is described. Isaac Nettles MD Carotid Artery Ultrasound 03/07/17 0000 Signed Impressions: Service Date/Time: Tuesday, March 07, 2017 18:06 - CONCLUSION: No evidence of anatomic or physiologic stenosis. Minimal nonstenotic atherosclerotic plaquing of the right internal carotid initial segment and the left bulb as well as initial segment of the internal carotid Alex De La Torre MD Assessment and Plan Problem List: (1) CAD (coronary artery disease) ICD Codes: I25.10 - Atherosclerotic heart disease of [place] coronary artery without angina pectoris Assessment and Plan Doing well, for CABG friday, continue medical mgt. Cali Barnes MD Mar 08, 2017 10:13
--- NOTE | 2017-03-08 10:49 | HHI.PR ---
Subjective Remarks F/u CP/CAD. Denies CP. Sleepy did not sleep well. Has nausea dw RN Objective Vitals Vital Signs Date Time Temp Pulse Resp B/P (MAP) Pulse Ox O2 Delivery O2 Flow Rate FiO2 03/08/17 10:00 79 03/08/17 09:43 98.3 83 16 128/82 (97) 93 03/08/17 09:00 80 03/08/17 08:00 67 03/08/17 07:00 68 03/08/17 06:00 71 03/08/17 05:00 72 03/08/17 04:00 73 03/08/17 04:00 98.0 73 18 110/66 (81) 96 03/08/17 04:00 Room Air 03/08/17 03:00 74 03/08/17 02:00 71 03/08/17 01:00 70 03/08/17 00:00 Room Air 03/08/17 00:00 74 03/08/17 00:00 98.1 74 18 105/66 (79) 96 03/07/17 23:00 80 03/07/17 22:00 82 03/07/17 21:00 93 03/07/17 20:00 98.6 75 20 147/89 (108) 97 03/07/17 20:00 75 03/07/17 19:22 96 03/07/17 18:00 84 03/07/17 17:45 148/88 (108) 03/07/17 17:35 156/102 (120) 03/07/17 17:00 78 03/07/17 16:00 98.1 75 16 140/86 (104) 97 03/07/17 16:00 72 03/07/17 15:00 74 03/07/17 14:00 74 03/07/17 14:00 74 03/07/17 14:00 98.2 72 18 138/86 (103) 96 I/O 03/07/17 03/07/17 03/07/17 03/08/17 03/08/17 03/08/17 07:00 15:00 23:00 07:00 15:00 23:00 Intake Total 920 ml 340 ml Output Total 700 ml 600 ml Balance 220 ml -260 ml Intake Oral 420 ml 240 ml IV Total 500 ml 100 ml Output Urine Total 700 ml 600 ml # Bowel Movements 0 0 Result Diagram: 03/08/17 0512 03/08/17 0521 Imaging Last Impressions Lower Extremity Ultrasound 03/07/17 0000 Signed Impressions: Service Date/Time: Tuesday, March 07, 2017 18:32 - CONCLUSION: Venous mapping exam is described. Isaac Nettles MD Carotid Artery Ultrasound 03/07/17 0000 Signed Impressions: Service Date/Time: Tuesday, March 07, 2017 18:06 - CONCLUSION: No evidence of anatomic or physiologic stenosis. Minimal nonstenotic atherosclerotic plaquing of the right internal carotid initial segment and the left bulb as well as initial segment of the internal carotid Alex De La Torre MD Objective Remarks GENERAL: This is a well-nourished, well-developed patient, in no apparent distress. SKIN: No rashes, ecchymoses or lesions. Cool and dry. HEAD: Atraumatic. Normocephalic. EYES: Pupils equal round and reactive. Extraocular motions intact. No scleral icterus. CARDIOVASCULAR: Regular rate and rhythm without murmurs, gallops, or rubs. RESPIRATORY: Coarse breath sounds Breath sounds equal bilaterally. GASTROINTESTINAL: Abdomen soft, non-tender, nondistended. No guarding. MUSCULOSKELETAL: Extremities without clubbing, cyanosis, or edema. No joint tenderness, effusion, or edema noted. No calf tenderness. Negative Homans sign bilaterally. NEUROLOGICAL: Awake and alert. Nonfocal Procedures Cardiac catheterization A/P Problem List: (1) CAD (coronary artery disease) ICD Code: I25.10 - Atherosclerotic heart disease of [place] coronary artery without angina pectoris Assessment and Plan This is a 71-year-old male with history of peripheral vascular disease, ectatic aorta, BPH, skin cancer, seizure disorder, COPD and hyperlipidemia. He underwent elective cardiac catheterization showing two-vessel disease and has been referred for CABG. CAD status post cardiac catheterization. Continue aspirin, Imdur, Lopressor, Lipitor and heparin drip. Seizure disorder with last seizure episode years ago maintained on Dilantin, Tegretol and Neurontin. Stable seizure precautions COPD not oxygen dependent on nebulizations. He has quit smoking 10 years ago has a history of 60-80 pack years. Stable Hyperlipidemia on Lipitor. Pending records from his PCP DVT prophylaxis on heparin drip Discharge Planning For CABG on Friday Last Penny MD Mar 08, 2017 10:49
[2017-03-08 12:40] LABS: APTT (PATIENT) 38.9 SEC (24.3-30.1)
[2017-03-08] MEDS ORDERED: ACETAMINOPHEN 325 MG TAB PO PRN (12:45)
[2017-03-08] MEDS ORDERED: ONDANSETRON HCL 4 MG/2 ML VIAL IV PUSH PRN (12:45)
[2017-03-08] MEDS ORDERED: CALCIUM CARBONATE 500 MG CHEWABLE TAB CHEW PRN (12:45)
[2017-03-08] MEDS: HEPARIN-D5W 25,000 U/250 ML 250 ML IV PRN (13:08)
[2017-03-08 18:49] LABS: HEMATOCRIT 36.9 % (39.0-51.0); MEAN CELL VOLUME 99.6 FL (80.0-100.0); MEAN CORPUSCULAR HEMOGLOBIN 33.5 PG (27.0-34.0); MEAN CORPUSCULAR HGB CONC 33.6 % (32.0-36.0); PLATELET COUNT 185 TH/MM3 (150-450); REVIEW FLAG FINAL; WHITE BLOOD COUNT 9.4 TH/MM3 (4.0-11.0)
[2017-03-08] MEDS: NS + KCL 20 MEQ INJ 1,000 ML IV SCH (18:49)
[2017-03-08 18:58] LABS: APTT (PATIENT) 45.7 SEC (24.3-30.1)
[2017-03-08 18:59] LABS: ANION GAP 8 MEQ/L (5-15); AST (GOT) 11 U/L (15-37); BICARBONATE 24.7 MEQ/L (21.0-32.0); BLOOD UREA NITROGEN 15 MG/DL (7-18); CHLORIDE 107 MEQ/L (98-107); GLOMERULAR FILTRATION RATE 132 ML/MIN (>89); POTASSIUM 3.9 MEQ/L (3.5-5.1); SODIUM (NA) 140 MEQ/L (136-145)
[2017-03-08 19:00] LABS: ALT (GPT) 19 U/L (12-78)
[2017-03-08 19:02] LABS: ALKALINE PHOSPHATASE 124 U/L (45-117); TOTAL BILIRUBIN ADULT 0.4 MG/DL (0.2-1.0)
[2017-03-08] MEDS: GABAPENTIN 300 MG CAP PO SCH (20:00)
[2017-03-08] MEDS: PHENYTOIN SODIUM 100 MG CAP PO SCH (20:00)
[2017-03-08] MEDS: ATORVASTATIN 40 MG TAB PO SCH (20:00)
[2017-03-09] VITALS (24 sets, daily range): BP systolic 112–139; BP diastolic 60–79; PULSE 67–96; RESP 18; TEMP 97.7–98.5; O2SAT 92–95
[2017-03-09] MEDS ORDERED: PHENYTOIN SODIUM 100 MG CAP PO ONE (04:00)
[2017-03-09 04:05] LABS: BICARBONATE 25.5 MEQ/L (21.0-32.0); MAGNESIUM 2.2 MG/DL (1.5-2.5); POTASSIUM 3.7 MEQ/L (3.5-5.1)
[2017-03-09 04:41] LABS: APTT (PATIENT) 46.2 SEC (24.3-30.1)
[2017-03-09] MEDS: NITROGLYCERIN 0.4 MG SL 25 TABS/BTL SL PRN ×2 (05:36→05:41)
[2017-03-09] MEDS: RESP: ALBUTEROL 2.5 MG/IPRATROPIUM 0.5 MG NEB (SCH) NEB ×3 (07:41→20:17)
[2017-03-09] MEDS: METOPROLOL TARTRATE 25 MG TAB PO SCH ×2 (08:56→21:04)
[2017-03-09] MEDS: ISOSORBIDE MONONITRATE 30 MG TAB PO SCH (08:56)
[2017-03-09] MEDS: DOCUSATE SODIUM 50 MG/SENNA 8.6 MG TAB PO SCH ×2 (08:56→21:04)
[2017-03-09] MEDS: carBAMazepine 200 MG TAB PO SCH ×2 (08:56→21:05)
[2017-03-09] MEDS: ASPIRIN 81 MG CHEW TAB CHEW SCH (08:56)
[2017-03-09] MEDS: SODIUM CHLORIDE 0.9% FLUSH 10 ML FLUSH IV FLUSH SCH ×2 (08:57→21:00)
[2017-03-09] MEDS: NS + KCL 20 MEQ INJ 1,000 ML IV SCH (08:59)
[2017-03-09] MEDS: HEPARIN-D5W 25,000 U/250 ML 250 ML IV PRN (09:01)
--- NOTE | 2017-03-09 09:57 | HHI.PR ---
Subjective Remarks F/u vomiting and CP. Improved nausea today. CP relieved with NTG this am dw and RN. New meds Pericolace and Lopressor. At home takes all meds at night at the same time Objective Vitals Vital Signs Date Time Temp Pulse Resp B/P (MAP) Pulse Ox O2 Delivery O2 Flow Rate FiO2 03/09/17 06:00 96 03/09/17 05:00 78 03/09/17 04:00 90 03/09/17 03:00 86 03/09/17 03:00 98.2 93 18 123/73 (90) 93 03/09/17 02:00 94 03/09/17 01:00 77 03/09/17 00:00 90 03/08/17 23:00 91 03/08/17 23:00 92 18 117/70 (86) 96 03/08/17 21:00 87 03/08/17 21:00 98.8 84 18 142/78 (99) 94 03/08/17 18:44 98.4 83 16 113/68 (83) 98 03/08/17 18:00 79 03/08/17 17:00 73 03/08/17 16:00 78 03/08/17 15:00 72 03/08/17 14:00 69 03/08/17 13:00 75 03/08/17 12:08 98.2 68 16 125/79 (94) 96 03/08/17 11:00 96 03/08/17 10:00 79 I/O 03/08/17 03/08/17 03/08/17 03/09/17 03/09/17 03/09/17 07:00 15:00 23:00 07:00 15:00 23:00 Intake Total 340 ml 70 ml 62 ml 1312 ml Output Total 600 ml 210 ml Balance -260 ml 70 ml 62 ml 1102 ml Intake Oral 240 ml 480 ml IV Total 100 ml 70 ml 62 ml 832 ml Output Urine Total 600 ml 210 ml # Voids 3 # Bowel Movements 0 1 0 Result Diagram: 03/08/17 1817 03/09/17 0327 Imaging Last Impressions Lower Extremity Ultrasound 03/07/17 0000 Signed Impressions: Service Date/Time: Tuesday, March 07, 2017 18:32 - CONCLUSION: Venous mapping exam is described. Isaac Nettles MD Carotid Artery Ultrasound 03/07/17 0000 Signed Impressions: Service Date/Time: Tuesday, March 07, 2017 18:06 - CONCLUSION: No evidence of anatomic or physiologic stenosis. Minimal nonstenotic atherosclerotic plaquing of the right internal carotid initial segment and the left bulb as well as initial segment of the internal carotid Alex De La Torre MD Objective Remarks GENERAL: This is a well-nourished, well-developed patient, in no apparent distress. No signs of dehydration SKIN: No rashes, ecchymoses or lesions. Cool and dry. CARDIOVASCULAR: Regular rate and rhythm without murmurs, gallops, or rubs. RESPIRATORY: Coarse breath sounds Breath sounds equal bilaterally. GASTROINTESTINAL: Abdomen soft, non-tender, nondistended. No guarding. MUSCULOSKELETAL: Extremities without clubbing, cyanosis, or edema. No joint tenderness, effusion, or edema noted. No calf tenderness. Negative Homans sign bilaterally. NEUROLOGICAL: Awake and alert. Nonfocal Procedures Cardiac catheterization A/P Problem List: (1) CAD (coronary artery disease) ICD Code: I25.10 - Atherosclerotic heart disease of [place] coronary artery without angina pectoris Assessment and Plan This is a 71-year-old male with history of peripheral vascular disease, ectatic aorta, BPH, skin cancer, seizure disorder, COPD and hyperlipidemia. He underwent elective cardiac catheterization showing two-vessel disease and has been referred for CABG. CAD status post cardiac catheterization. CP this am relived with NTG. Continue aspirin, Imdur, Lopressor, Lipitor and heparin drip. For CABG Friday Seizure disorder with last seizure episode years ago maintained on Dilantin, Tegretol and Neurontin. Subtherapeutic levels s/p replacement. Rpt levels in am , seizure precautions COPD not oxygen dependent on nebulizations. He has quit smoking 10 years ago has a history of 60-80 pack years. Stable Hyperlipidemia on Lipitor. [place] and vomiting. Etiology not clear could be new meds or combination. Improved. Ct to monitor Pending records from his PCP DVT prophylaxis on heparin drip Discharge Planning For CABG on Friday Last Penny MD Mar 09, 2017 09:57
--- NOTE | 2017-03-09 10:13 | PD.CARD.PN ---
Subjective Subjective Remarks No chest pain, feeling well, no changes Objective Medications Current Medications Medications (Trade) Dose Ordered Sig/Joselo Route Start Time Stop Time Status Last Admin (NS Flush) 2 ml BID IV FLUSH 03/07/17 21:00 03/09/17 08:57 (NS Flush) 2 ml UNSCH PRN IV FLUSH 03/07/17 14:30 Papaverine HCl 60 mg/Nitroglycerin 100 mcg/Diltiazem HCl 100 mg/Sodium Chloride 100 ml @ 0 mls/hr [employer] IRRIGATION 03/07/17 14:30 03/14/17 14:29 Cefazolin Sodium 500 mg/Sodium Chloride 505 ml @ 0 mls/hr [employer] IRRIGATION 03/07/17 14:30 03/14/17 14:29 Cefazolin Sodium/ Dextrose 50 ml @ 150 mls/hr [employer]ING [employer] IV 03/07/17 14:30 03/14/17 14:29 (Lopressor) 12.5 mg LINING [employer]KER PO 03/07/17 14:30 03/14/17 14:29 (Hibiclens 4% Top Soln) 1 applic [employer]ING [employer] TOPICAL 03/07/17 14:30 03/14/17 14:29 Insulin Human Regular 100 units/ Sodium Chloride 100 ml @ 3 mls/hr TITRATE PRN IV 03/07/17 14:30 03/14/17 14:29 (Aspirin Chew) 81 mg DAILY CHEW 03/08/17 09:00 03/09/17 08:56 (Lipitor) 40 mg HS PO 03/07/17 21:00 03/08/17 20:00 (TEGretol) 200 mg BID PO 03/07/17 14:45 03/09/17 08:56 (Neurontin) 300 mg HS PO 03/07/17 21:00 03/08/17 20:00 (Imdur) 30 mg DAILY PO 03/08/17 09:00 03/09/17 08:56 (Nitrostat Sl) 0.4 mg Q5M PRN SL 03/07/17 14:45 03/09/17 05:41 (Lopressor) 12.5 mg Q12HR PO 03/07/17 21:00 03/09/17 08:56 (Duoneb Neb) 1 ampule Q6HR WHILE AWAKE NEB NEB 03/07/17 20:00 03/09/17 07:41 (Duoneb Neb) 1 ampule Q2HR NEB PRN NEB 03/07/17 14:45 (Dilantin) 400 mg HS PO 03/07/17 21:00 03/08/17 20:00 (Dorina-Colace) 1 tab BID PO 03/07/17 21:00 03/09/17 08:56 (Milk Of Magnesia Liq) 30 ml Q12H PRN PO 03/07/17 15:15 (Senokot) 17.2 mg Q12H PRN PO 03/07/17 15:15 (Dulcolax Supp) 10 mg DAILY PRN RECTAL 03/07/17 15:15 (Vasotec Inj) 1.25 mg Q6H PRN IV PUSH 03/07/17 15:15 03/07/17 17:40 (Catapres) 0.1 mg Q6H PRN PO 03/07/17 15:15 (Ativan Inj) 1 mg Q2H PRN IV 03/07/17 20:30 03/08/17 03:10 (Pill Splitter) 1 ea UNSCH PRN OTHER 03/08/17 08:45 (Tylenol) 650 mg Q4H PRN PO 03/08/17 12:45 (Zofran Inj) 4 mg Q6H PRN IV PUSH 03/08/17 12:45 03/08/17 13:03 (Tums Chew) 1,000 mg TID PRN CHEW 03/08/17 12:45 Heparin Sodium/ Dextrose 250 ml @ 9.264 mls/ hr TITRATE PRN IV 03/08/17 13:00 03/09/17 09:01 Potassium Chloride/Sodium Chloride 1,000 ml @ 60 mls/hr [id number] IV 03/08/17 17:30 03/09/17 08:59 Vital Signs / I&O Vital Signs Date Time Temp Pulse Resp B/P (MAP) Pulse Ox O2 Delivery O2 Flow Rate FiO2 03/09/17 07:00 97.7 95 18 139/79 (99) 95 03/09/17 07:00 88 03/09/17 06:00 96 03/09/17 05:00 78 03/09/17 04:00 90 03/09/17 03:00 86 03/09/17 03:00 98.2 93 18 123/73 (90) 93 03/09/17 02:00 94 03/09/17 01:00 77 03/09/17 00:00 90 03/08/17 23:00 91 03/08/17 23:00 92 18 117/70 (86) 96 03/08/17 21:00 87 03/08/17 21:00 98.8 84 18 142/78 (99) 94 03/08/17 18:44 98.4 83 16 113/68 (83) 98 03/08/17 18:00 79 03/08/17 17:00 73 03/08/17 16:00 78 03/08/17 15:00 72 03/08/17 14:00 69 03/08/17 13:00 75 03/08/17 12:08 98.2 68 16 125/79 (94) 96 03/08/17 11:00 96 I/O 03/08/17 03/08/17 03/08/17 03/09/17 03/09/17 03/09/17 07:00 15:00 23:00 07:00 15:00 23:00 Intake Total 340 ml 70 ml 62 ml 1312 ml Output Total 600 ml 210 ml Balance -260 ml 70 ml 62 ml 1102 ml Intake Oral 240 ml 480 ml IV Total 100 ml 70 ml 62 ml 832 ml Output Urine Total 600 ml 210 ml # Voids 3 # Bowel Movements 0 1 0 Physical Exam GENERAL: This is a well-nourished, well-developed patient, in no apparent distress. CARDIOVASCULAR: Regular rate and rhythm without murmurs, gallops, or rubs. RESPIRATORY: Clear to auscultation. Breath sounds equal bilaterally. No wheezes , rales, or rhonchi. GASTROINTESTINAL: Abdomen soft, non-tender, nondistended. Normal active bowel sounds MUSCULOSKELETAL: Extremities without clubbing, cyanosis, or edema. NEURO: Alert & Oriented x4 to person, place, time, situation. Moves all ext x4 Laboratory Laboratory Tests Test 03/08/17 12:15 03/08/17 18:17 03/09/17 03:27 Activated Partial Thromboplast Time 38.9 SEC 45.7 SEC 46.2 SEC White Blood Count 9.4 TH/MM3 Red Blood Count 3.70 MIL/MM3 Hemoglobin 12.4 GM/DL Hematocrit 36.9 % Mean Corpuscular Volume 99.6 FL Mean Corpuscular Hemoglobin 33.5 PG Mean Corpuscular Hemoglobin Concent 33.6 % Red Cell Distribution Width 13.0 % Platelet Count 185 TH/MM3 Mean Platelet Volume 10.5 FL Blood Urea Nitrogen 15 MG/DL 15 MG/DL Creatinine 0.60 MG/DL 0.59 MG/DL Random Glucose 105 MG/DL 88 MG/DL Total Protein 7.3 GM/DL Albumin 3.5 GM/DL Calcium Level 9.2 MG/DL 8.6 MG/DL Alkaline Phosphatase 124 U/L Aspartate Amino Transf (AST/SGOT) 11 U/L Alanine Aminotransferase (ALT/SGPT) 19 U/L Total Bilirubin 0.4 MG/DL Sodium Level 140 MEQ/L 140 MEQ/L Potassium Level 3.9 MEQ/L 3.7 MEQ/L Chloride Level 107 MEQ/L 108 MEQ/L Carbon Dioxide Level 24.7 MEQ/L 25.5 MEQ/L Anion Gap 8 MEQ/L 7 MEQ/L Estimat Glomerular Filtration Rate 132 ML/MIN 135 ML/MIN Lipase 70 U/L Phenytoin (Dilantin) Level 6.8 MCG/ML 4.1 MCG/ML Carbamazepine (Tegretol) Level 3.1 MCG/ML 3.9 MCG/ML Magnesium Level 2.2 MG/DL Imaging Last Impressions Lower Extremity Ultrasound 03/07/17 0000 Signed Impressions: Service Date/Time: Tuesday, March 07, 2017 18:32 - CONCLUSION: Venous mapping exam is described. Isaac Nettles MD Carotid Artery Ultrasound 03/07/17 0000 Signed Impressions: Service Date/Time: Tuesday, March 07, 2017 18:06 - CONCLUSION: No evidence of anatomic or physiologic stenosis. Minimal nonstenotic atherosclerotic plaquing of the right internal carotid initial segment and the left bulb as well as initial segment of the internal carotid Alex De La Torre MD Assessment and Plan Problem List: (1) CAD (coronary artery disease) ICD Codes: I25.10 - Atherosclerotic heart disease of [place] coronary artery without angina pectoris Assessment and Plan Doing well, for CABG tue, continue medical mgt. Cali Barnes MD Mar 09, 2017 10:13
--- NOTE | 2017-03-09 10:40 | PD.CAR.PN ---
CVT Progress Note Subjective/Hospital Course: sts data discussed with pt RISK SCORES About the STS Risk Calculator Procedure: CAB Only Risk of Mortality: 1.368% Morbidity or Mortality: 11.444% Long Length of Stay: 4.682% Short Length of Stay: 51.182% Permanent Stroke: 0.81% Prolonged Ventilation: 8.076% DSW Infection: 0.398% Renal Failure: 1.373% Reoperation: 5.357% 03/09/17 No complaints. Denies chest pain Objective: Vital Signs Date Time Temp Pulse Resp B/P (MAP) Pulse Ox O2 Delivery O2 Flow Rate FiO2 03/09/17 10:00 82 03/09/17 09:00 91 03/09/17 08:00 95 03/09/17 07:00 97.7 95 18 139/79 (99) 95 03/09/17 07:00 88 03/09/17 06:00 96 03/09/17 05:00 78 03/09/17 04:00 90 03/09/17 03:00 86 03/09/17 03:00 98.2 93 18 123/73 (90) 93 03/09/17 02:00 94 03/09/17 01:00 77 03/09/17 00:00 90 03/08/17 23:00 91 03/08/17 23:00 92 18 117/70 (86) 96 03/08/17 21:00 87 03/08/17 21:00 98.8 84 18 142/78 (99) 94 03/08/17 18:44 98.4 83 16 113/68 (83) 98 03/08/17 18:00 79 03/08/17 17:00 73 03/08/17 16:00 78 03/08/17 15:00 72 03/08/17 14:00 69 03/08/17 13:00 75 03/08/17 12:08 98.2 68 16 125/79 (94) 96 03/08/17 11:00 96 Labs: Laboratory Tests Test 03/09/17 03:27 Activated Partial Thromboplast Time 46.2 SEC (24.3-30.1) Blood Urea Nitrogen 15 MG/DL (7-18) Creatinine 0.59 MG/DL (0.60-1.30) Random Glucose 88 MG/DL (74-106) Calcium Level 8.6 MG/DL (8.5-10.1) Magnesium Level 2.2 MG/DL (1.5-2.5) Sodium Level 140 MEQ/L (136-145) Potassium Level 3.7 MEQ/L (3.5-5.1) Chloride Level 108 MEQ/L (98-107) Carbon Dioxide Level 25.5 MEQ/L (21.0-32.0) Anion Gap 7 MEQ/L (5-15) Estimat Glomerular Filtration Rate 135 ML/MIN (>89) Phenytoin (Dilantin) Level 4.1 MCG/ML (10.0-20.0) Carbamazepine (Tegretol) Level 3.9 MCG/ML (4.0-12.0) Result Diagram: 03/08/17 1817 03/09/17 0327 Imaging: Last Impressions Lower Extremity Ultrasound 03/07/17 0000 Signed Impressions: Service Date/Time: Tuesday, March 07, 2017 18:32 - CONCLUSION: Venous mapping exam is described. Isaac Nettles MD Carotid Artery Ultrasound 03/07/17 0000 Signed Impressions: Service Date/Time: Tuesday, March 07, 2017 18:06 - CONCLUSION: No evidence of anatomic or physiologic stenosis. Minimal nonstenotic atherosclerotic plaquing of the right internal carotid initial segment and the left bulb as well as initial segment of the internal carotid Alex De La Torre MD Cardiovascular: RRR Telemetry: NSR Pulmonary: CTA GI/: soft, NT Plan: 71y/o male with left main and 3 vessel CAD presents for CABG. Films reviewed. CXR will be ordered today. PFTs pending. Risks and benefits of CABG discussed and he agrees to proceed. (1) CAD (coronary artery disease) Aviva Gonzalez MD Mar 09, 2017 10:40
[2017-03-09] MEDS: GABAPENTIN 300 MG CAP PO SCH (21:04)
[2017-03-09] MEDS: PHENYTOIN SODIUM 100 MG CAP PO SCH (21:04)
[2017-03-09] MEDS: ATORVASTATIN 40 MG TAB PO SCH (21:05)
[2017-03-10] VITALS (28 sets, daily range): BP systolic 99–146; BP diastolic 57–87; PULSE 66–90; RESP 16–19; TEMP 97.7–98.8; O2SAT 92–98
[2017-03-10] MEDS: NS + KCL 20 MEQ INJ 1,000 ML IV SCH (02:50)
[2017-03-10 05:23] LABS: PROTHROMBIN TIME - PATIENT 11.2 SEC (9.8-11.6)
[2017-03-10 05:28] LABS: AUTOMATED NEUTROPHIL # 4.7 TH/MM3 (1.8-7.7); BASOPHIL # 0.1 TH/MM3 (0-0.2); BASOPHIL % 0.7 % (0.0-2.0); HEMATOCRIT 34.4 % (39.0-51.0); HEMO FLAGS DIFF FINAL; LYMPHOCYTE # 2.4 TH/MM3 (1.0-4.8); MEAN CELL VOLUME 98.7 FL (80.0-100.0); MEAN CORPUSCULAR HEMOGLOBIN 33.5 PG (27.0-34.0); NEUT % 61.3 % (16.0-70.0); PLATELET COUNT 183 TH/MM3 (150-450); RED BLOOD COUNT 3.48 MIL/MM3 (4.50-5.90); RED CELL DISTRIBUTION WIDTH 12.6 % (11.6-17.2); WHITE BLOOD COUNT 7.6 TH/MM3 (4.0-11.0)
[2017-03-10 05:39] LABS: ANION GAP 8 MEQ/L (5-15); AST (GOT) 18 U/L (15-37); BICARBONATE 25.7 MEQ/L (21.0-32.0); BLOOD UREA NITROGEN 13 MG/DL (7-18); CHLORIDE 107 MEQ/L (98-107); GLOMERULAR FILTRATION RATE 132 ML/MIN (>89); POTASSIUM 3.4 MEQ/L (3.5-5.1); SODIUM (NA) 141 MEQ/L (136-145)
[2017-03-10 05:43] LABS: ALKALINE PHOSPHATASE 111 U/L (45-117); ALT (GPT) 19 U/L (12-78); TOTAL BILIRUBIN ADULT 0.4 MG/DL (0.2-1.0)
[2017-03-10] MEDS: HEPARIN-D5W 25,000 U/250 ML 250 ML IV PRN (06:42)
[2017-03-10] MEDS ORDERED: POTASSIUM CHLORIDE 25 MEQ EFFERVESCENT TAB PO ONE (06:45)
--- NOTE | 2017-03-10 08:23 | PD.CARD.PN ---
Subjective Subjective Remarks no complaints eating breakfast this am nervous but optimistic Objective Medications Current Medications Medications (Trade) Dose Ordered Sig/Joselo Route Start Time Stop Time Status Last Admin (NS Flush) 2 ml BID IV FLUSH 03/07/17 21:00 03/09/17 08:57 (NS Flush) 2 ml UNSCH PRN IV FLUSH 03/07/17 14:30 Papaverine HCl 60 mg/Nitroglycerin 100 mcg/Diltiazem HCl 100 mg/Sodium Chloride 100 ml @ 0 mls/hr [employer] IRRIGATION 03/07/17 14:30 03/14/17 14:29 Cefazolin Sodium 500 mg/Sodium Chloride 505 ml @ 0 mls/hr [employer] IRRIGATION 03/07/17 14:30 03/14/17 14:29 Cefazolin Sodium/ Dextrose 50 ml @ 150 mls/hr [employer]ELOP[employer] IV 03/07/17 14:30 03/14/17 14:29 (Lopressor) 12.5 mg [employer]OP[employer] PO 03/07/17 14:30 03/14/17 14:29 (Hibiclens 4% Top Soln) 1 applic [employer] TOPICAL 03/07/17 14:30 03/14/17 14:29 Insulin Human Regular 100 units/ Sodium Chloride 100 ml @ 3 mls/hr TITRATE PRN IV 03/07/17 14:30 03/14/17 14:29 (Aspirin Chew) 81 mg DAILY CHEW 03/08/17 09:00 03/09/17 08:56 (Lipitor) 40 mg HS PO 03/07/17 21:00 03/09/17 21:05 (TEGretol) 200 mg BID PO 03/07/17 14:45 03/09/17 21:05 (Neurontin) 300 mg HS PO 03/07/17 21:00 03/09/17 21:04 (Imdur) 30 mg DAILY PO 03/08/17 09:00 03/09/17 08:56 (Nitrostat Sl) 0.4 mg Q5M PRN SL 03/07/17 14:45 03/09/17 05:41 (Lopressor) 12.5 mg Q12HR PO 03/07/17 21:00 03/09/17 21:04 (Duoneb Neb) 1 ampule Q6HR WHILE AWAKE NEB NEB 03/07/17 20:00 03/09/17 20:17 (Duoneb Neb) 1 ampule Q2HR NEB PRN NEB 03/07/17 14:45 (Dilantin) 400 mg HS PO 03/07/17 21:00 03/09/17 21:04 (Dorina-Colace) 1 tab BID PO 03/07/17 21:00 03/09/17 21:04 (Milk Of Magnesia Liq) 30 ml Q12H PRN PO 03/07/17 15:15 (Senokot) 17.2 mg Q12H PRN PO 03/07/17 15:15 (Dulcolax Supp) 10 mg DAILY PRN RECTAL 03/07/17 15:15 (Vasotec Inj) 1.25 mg Q6H PRN IV PUSH 03/07/17 15:15 03/07/17 17:40 (Catapres) 0.1 mg Q6H PRN PO 03/07/17 15:15 (Ativan Inj) 1 mg Q2H PRN IV 03/07/17 20:30 03/08/17 03:10 (Pill Splitter) 1 ea UNSCH PRN OTHER 03/08/17 08:45 (Tylenol) 650 mg Q4H PRN PO 03/08/17 12:45 (Zofran Inj) 4 mg Q6H PRN IV PUSH 03/08/17 12:45 03/08/17 13:03 (Tums Chew) 1,000 mg TID PRN CHEW 03/08/17 12:45 Heparin Sodium/ Dextrose 250 ml @ 9.264 mls/ hr TITRATE PRN IV 03/08/17 13:00 03/10/17 06:42 Potassium Chloride/Sodium Chloride 1,000 ml @ 60 mls/hr [id number] IV 03/08/17 17:30 03/09/17 08:59 Vital Signs / I&O Vital Signs Date Time Temp Pulse Resp B/P (MAP) Pulse Ox O2 Delivery O2 Flow Rate FiO2 03/10/17 06:00 70 03/10/17 05:00 72 03/10/17 04:00 68 03/10/17 03:00 68 03/10/17 03:00 97.8 71 18 99/57 (71) 92 03/10/17 02:00 69 03/10/17 01:00 67 03/10/17 00:00 66 03/09/17 23:00 98.1 85 18 126/73 (90) 94 03/09/17 23:00 76 03/09/17 22:00 89 03/09/17 21:00 92 03/09/17 20:00 67 03/09/17 19:00 97.8 75 18 112/60 (77) 93 03/09/17 19:00 80 03/09/17 18:00 85 03/09/17 17:00 76 03/09/17 16:00 84 03/09/17 15:00 98.3 77 18 124/73 (90) 94 03/09/17 15:00 83 03/09/17 14:00 91 03/09/17 13:00 78 03/09/17 12:00 71 03/09/17 11:00 69 03/09/17 11:00 98.5 70 18 116/72 (87) 92 03/09/17 10:00 82 03/09/17 09:00 91 I/O 03/09/17 03/09/17 03/09/17 03/10/17 03/10/17 03/10/17 07:00 15:00 23:00 07:00 15:00 23:00 Intake Total 1312 ml 952 ml 480 ml Output Total 210 ml 250 ml 600 ml Balance 1102 ml 702 ml -120 ml Intake Oral 480 ml 500 ml 480 ml IV Total 832 ml 452 ml Output Urine Total 210 ml 250 ml 600 ml # Voids 1 # Bowel Movements 0 0 0 Physical Exam GENERAL: SKIN: Warm and dry. HEAD: Normocephalic. EYES: No scleral icterus. No injection or drainage. NECK: Supple, trachea midline. No JVD or lymphadenopathy. CARDIOVASCULAR: Regular rate and rhythm without murmurs, gallops, or rubs. RESPIRATORY: Breath sounds equal bilaterally. No accessory muscle use. GASTROINTESTINAL: Abdomen soft, non-tender, nondistended. MUSCULOSKELETAL: No cyanosis, or edema. BACK: Nontender without obvious deformity. No CVA tenderness. Laboratory Laboratory Tests Test 03/10/17 05:03 White Blood Count 7.6 TH/MM3 Red Blood Count 3.48 MIL/MM3 Hemoglobin 11.7 GM/DL Hematocrit 34.4 % Mean Corpuscular Volume 98.7 FL Mean Corpuscular Hemoglobin 33.5 PG Mean Corpuscular Hemoglobin Concent 34.0 % Red Cell Distribution Width 12.6 % Platelet Count 183 TH/MM3 Mean Platelet Volume 10.4 FL Neutrophils (%) (Auto) 61.3 % Lymphocytes (%) (Auto) 32.0 % Monocytes (%) (Auto) 6.0 % Eosinophils (%) (Auto) 0.0 % Basophils (%) (Auto) 0.7 % Neutrophils # (Auto) 4.7 TH/MM3 Lymphocytes # (Auto) 2.4 TH/MM3 Monocytes # (Auto) 0.5 TH/MM3 Eosinophils # (Auto) 0.0 TH/MM3 Basophils # (Auto) 0.1 TH/MM3 CBC Comment DIFF FINAL Differential Comment Prothrombin Time 11.2 SEC Prothromb Time International Ratio 1.0 RATIO Activated Partial Thromboplast Time 42.0 SEC Blood Urea Nitrogen 13 MG/DL Creatinine 0.60 MG/DL Random Glucose 92 MG/DL Total Protein 6.8 GM/DL Albumin 3.3 GM/DL Calcium Level 9.1 MG/DL Alkaline Phosphatase 111 U/L Aspartate Amino Transf (AST/SGOT) 18 U/L Alanine Aminotransferase (ALT/SGPT) 19 U/L Total Bilirubin 0.4 MG/DL Sodium Level 141 MEQ/L Potassium Level 3.4 MEQ/L Chloride Level 107 MEQ/L Carbon Dioxide Level 25.7 MEQ/L Anion Gap 8 MEQ/L Estimat Glomerular Filtration Rate 132 ML/MIN Phenytoin (Dilantin) Level 8.4 MCG/ML Carbamazepine (Tegretol) Level 5.0 MCG/ML Imaging Last Impressions Lower Extremity Ultrasound 03/07/17 0000 Signed Impressions: Service Date/Time: Tuesday, March 07, 2017 18:32 - CONCLUSION: Venous mapping exam is described. Isaac Nettles MD Carotid Artery Ultrasound 03/07/17 0000 Signed Impressions: Service Date/Time: Tuesday, March 07, 2017 18:06 - CONCLUSION: No evidence of anatomic or physiologic stenosis. Minimal nonstenotic atherosclerotic plaquing of the right internal carotid initial segment and the left bulb as well as initial segment of the internal carotid Alex De La Torre MD Assessment and Plan Problem List: (1) CAD (coronary artery disease) ICD Codes: I25.10 - Atherosclerotic heart disease of [place] coronary artery without angina pectoris Assessment and Plan unstable angina - severe LM and RCA disease. holding plavix. check P2Y12 assay. on heparin gtt preoperative workup underway CABG tomorrow Jose Ernandez MD Mar 10, 2017 08:23
[2017-03-10] MEDS: SODIUM CHLORIDE 0.9% FLUSH 10 ML FLUSH IV FLUSH SCH ×2 (09:00→21:00)
[2017-03-10] MEDS: ASPIRIN 81 MG CHEW TAB CHEW SCH (09:37)
[2017-03-10] MEDS: METOPROLOL TARTRATE 25 MG TAB PO SCH ×2 (09:37→21:21)
[2017-03-10] MEDS: DOCUSATE SODIUM 50 MG/SENNA 8.6 MG TAB PO SCH ×2 (09:37→21:22)
[2017-03-10] MEDS: carBAMazepine 200 MG TAB PO SCH ×2 (09:37→21:23)
[2017-03-10] MEDS: ISOSORBIDE MONONITRATE 30 MG TAB PO SCH (09:37)
[2017-03-10] MEDS: RESP: ALBUTEROL 2.5 MG/IPRATROPIUM 0.5 MG NEB (SCH) NEB ×3 (09:56→21:08)
--- NOTE | 2017-03-10 10:03 | HHI.PR ---
Subjective Remarks Follow-up unstable angina. No further chest pain. Also tolerating by mouth denies nausea and vomiting. Discussed with RN Objective Vitals Vital Signs Date Time Temp Pulse Resp B/P (MAP) Pulse Ox O2 Delivery O2 Flow Rate FiO2 03/10/17 07:45 98.3 68 16 146/87 (106) 95 03/10/17 06:00 70 03/10/17 05:00 72 03/10/17 04:00 68 03/10/17 03:00 68 03/10/17 03:00 97.8 71 18 99/57 (71) 92 03/10/17 02:00 69 03/10/17 01:00 67 03/10/17 00:00 66 03/09/17 23:00 98.1 85 18 126/73 (90) 94 03/09/17 23:00 76 03/09/17 22:00 89 03/09/17 21:00 92 03/09/17 20:00 67 03/09/17 19:00 97.8 75 18 112/60 (77) 93 03/09/17 19:00 80 03/09/17 18:00 85 03/09/17 17:00 76 03/09/17 16:00 84 03/09/17 15:00 98.3 77 18 124/73 (90) 94 03/09/17 15:00 83 03/09/17 14:00 91 03/09/17 13:00 78 03/09/17 12:00 71 03/09/17 11:00 69 03/09/17 11:00 98.5 70 18 116/72 (87) 92 I/O 03/09/17 03/09/17 03/09/17 03/10/17 03/10/17 03/10/17 07:00 15:00 23:00 07:00 15:00 23:00 Intake Total 1312 ml 952 ml 480 ml Output Total 210 ml 250 ml 600 ml Balance 1102 ml 702 ml -120 ml Intake Oral 480 ml 500 ml 480 ml IV Total 832 ml 452 ml Output Urine Total 210 ml 250 ml 600 ml # Voids 1 # Bowel Movements 0 0 0 Result Diagram: 03/10/17 0503 03/10/17 0503 Imaging Last Impressions Chest X-Ray 03/10/17 0000 Signed Impressions: Service Date/Time: Friday, March 10, 2017 09:48 - CONCLUSION: No acute cardiopulmonary process. Kishor Russell MD Lower Extremity Ultrasound 03/07/17 0000 Signed Impressions: Service Date/Time: Tuesday, March 07, 2017 18:32 - CONCLUSION: Venous mapping exam is described. Isaac Nettles MD Carotid Artery Ultrasound 03/07/17 0000 Signed Impressions: Service Date/Time: Tuesday, March 07, 2017 18:06 - CONCLUSION: No evidence of anatomic or physiologic stenosis. Minimal nonstenotic atherosclerotic plaquing of the right internal carotid initial segment and the left bulb as well as initial segment of the internal carotid Alex De La Torre MD Objective Remarks GENERAL: This is a well-nourished, well-developed patient, in no apparent distress. No signs of dehydration SKIN: No rashes, ecchymoses or lesions. Cool and dry. CARDIOVASCULAR: Regular rate and rhythm without murmurs, gallops, or rubs. RESPIRATORY: Coarse breath sounds Breath sounds equal bilaterally. GASTROINTESTINAL: Abdomen soft, non-tender, nondistended. No guarding. MUSCULOSKELETAL: Extremities without clubbing, cyanosis, or edema. No joint tenderness, effusion, or edema noted. No calf tenderness. Negative Homans sign bilaterally. NEUROLOGICAL: Awake and alert. Nonfocal No significant change in PE from previous Procedures Cardiac catheterization A/P Problem List: (1) CAD (coronary artery disease) ICD Code: I25.10 - Atherosclerotic heart disease of [place] coronary artery without angina pectoris Assessment and Plan This is a 71-year-old male with history of peripheral vascular disease, ectatic aorta, BPH, skin cancer, seizure disorder, COPD and hyperlipidemia. He underwent elective cardiac catheterization showing two-vessel disease and has been referred for CABG. CAD status post cardiac catheterization. No further chest pain. Continue aspirin, Imdur, Lopressor, Lipitor and heparin drip. For CABG tomorrow Friday Seizure disorder with last seizure episode years ago maintained on Dilantin, Tegretol and Neurontin. Subtherapeutic levels s/p replacement. Increase Dilantin to 500 mg at bedtime, seizure precautions COPD not oxygen dependent on nebulizations. He has quit smoking 10 years ago has a history of 60-80 pack years. Stable Hyperlipidemia on Lipitor. [place] and vomiting. Etiology not clear could be new meds or combination. Improved. Ct to monitor Pending records from his PCP DVT prophylaxis on heparin drip Discharge Planning For CABG on Friday Last Penny MD Mar 10, 2017 10:03
--- NOTE | 2017-03-10 10:27 | RADRPT ---
EXAM DATE/TIME: 03/10/2017 09:48 [facility] COMPARISON: No previous studies available for comparison. INDICATIONS : Cardiac disease. MEDICAL HISTORY : Siezures. SURGICAL HISTORY : None. ENCOUNTER: Initial ACUITY: 4 - 6 days PAIN SCORE: 0/10 LOCATION: chest FINDINGS: A single view of the chest demonstrates the lungs to be symmetrically aerated with some minimal atele ctasis or scar just above the left hemidiaphragm. No confluent infiltrate. Flecks of radiopaque densi ty projecting over the right chest may be artifactual. Heart size is normal. Levoscoliosis of the kirsten padmini spine. Osseous structures are otherwise intact. CONCLUSION: No acute cardiopulmonary process. Kishor Russell MD on March 10, 2017 at 10:24 Board Certified Radiologist. This report was verified electronically.
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
[2017-03-10 11:37] LABS: BLOOD, URINE NEG (NEG); COMMENT (UR) CULT NOT INDICATED; CULTURE IF INDICATED CULT NOT INDICATED; GLUCOSE,URINE NEG (NEG); KETONE, URINE TRACE mg/dL (NEG); MUCUS URINE FEW /lpf (OCC); NITRITE,URINE NEG (NEG); URINE COLOR YELLOW (YELLW/STRAW)
[2017-03-10 15:54] LABS: P2Y12 REACTION UNITS (PRU) 224 PRU (194-418)
[2017-03-10 16:09] LABS: HEMOGLOBIN A1a 0.7 %; HEMOGLOBIN A1b 1.6 %; HEMOGLOBIN Ao 86.7 %; HEMOGLOBIN LA1C 1.8 %; HEMOGLOBIN P3 3.8 %
[2017-03-10] MEDS ORDERED: PHENYTOIN SODIUM 100 MG CAP PO SCH (21:00)
[2017-03-10] MEDS: PHENYTOIN SODIUM 100 MG CAP PO SCH (21:22)
[2017-03-10] MEDS: GABAPENTIN 300 MG CAP PO SCH (21:23)
[2017-03-10] MEDS: ATORVASTATIN 40 MG TAB PO SCH (21:23)
[2017-03-11] VITALS (18 sets, daily range): BP systolic 114–151; BP diastolic 68–99; PULSE 66–97; RESP 16–18; TEMP 97.5–98.6; O2SAT 95–99
[2017-03-11 05:04] LABS: HEMATOCRIT 36.1 % (39.0-51.0); MEAN CELL VOLUME 98.7 FL (80.0-100.0); MEAN CORPUSCULAR HEMOGLOBIN 33.2 PG (27.0-34.0); MEAN CORPUSCULAR HGB CONC 33.7 % (32.0-36.0); PLATELET COUNT 166 TH/MM3 (150-450); RED BLOOD COUNT 3.66 MIL/MM3 (4.50-5.90); REVIEW FLAG FINAL; WHITE BLOOD COUNT 7.3 TH/MM3 (4.0-11.0)
[2017-03-11] MEDS ORDERED: SODIUM CHLORID 0.9% 500 ML IV PRN (05:15)
[2017-03-11] MEDS ORDERED: CHLORHEXIDINE GLUCONATE 2 % 1 PACK (2 CLOTHS) TOPICAL PRN (05:15)
[2017-03-11] MEDS ORDERED: LACTATED RINGER'S 1000 ML IV PRN (05:15)
[2017-03-11] MEDS ORDERED: INSULIN HUMAN REGULAR 1,000 UNITS/10 ML VIAL SQ PRN (05:15)
[2017-03-11] MEDS ORDERED: POVIDONE IODINE 5% (ANTISEPSIS KIT) 4 APPLICATIONS EACH NARE PRN (05:15)
[2017-03-11] MEDS ORDERED: ceFAZolin 2 GM PREMIX 50 ML ONE (06:16)
[2017-03-11] MEDS ORDERED: VANCOMYCIN HCL 1000 MG VIAL ONE (06:16)
[2017-03-11] MEDS ORDERED: methylPREDNISolone SOD SUCC 125 MG/2 ML VIAL ONE (06:16)
[2017-03-11] MEDS ORDERED: HEPARIN SODIUM - SQ 10,000 UNITS/ML VIAL ONE (06:16)
[2017-03-11] MEDS ORDERED: CARDIOPLEGIC IRR 2,000 ML ONE (06:38)
[2017-03-11] MEDS ORDERED: POTASSIUM CHLORIDE 40 MEQ/20 ML VIAL ONE (06:38)
[2017-03-11] MEDS ORDERED: SODIUM BICARBONATE 8.4% INJ 50 MEQ/50 ML SYR ONE (06:39)
[2017-03-11] MEDS ORDERED: MANNITOL INJ 100 ML ONE (06:39)
[2017-03-11] MEDS ORDERED: ALBUMIN 25% INJ 50 ML IV ONE (06:40)
[2017-03-11] MEDS ORDERED: HEPARIN SODIUM - IV 10,000 UNITS/10 ML VIAL ONE (06:40)
[2017-03-11] MEDS: RESP: ALBUTEROL 2.5 MG/IPRATROPIUM 0.5 MG NEB (SCH) NEB (08:00)
[2017-03-11] MEDS: SODIUM CHLORIDE 0.9% FLUSH 10 ML FLUSH IV FLUSH SCH ×2 (09:00→21:00)
[2017-03-11] MEDS ORDERED: SUGAMMADEX SODIUM 200 MG/2 ML VIAL IV PUSH ONE ×2 (11:10)
[2017-03-11] MEDS ORDERED: DEXMEDETOMIDINE HCL 200 MCG/2 ML VIAL ONE (11:10)
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
[2017-03-11] MEDS ORDERED: LACTATED RINGER'S 1000 ML INJ 500 ML IV PRN (11:19)
[2017-03-11] MEDS ORDERED: SODIUM BICARBONATE 8.4% SOLN 50 MEQ/50 ML VIAL IV PUSH PRN ×2 (11:30)
[2017-03-11] MEDS ORDERED: CALCIUM CHLORIDE 10% 1 GRAM/10 ML VIAL IV PUSH PRN (11:30)
[2017-03-11] MEDS ORDERED: POTASSIUM CHLORIDE 20 MEQ CONTROLLED RELEASE TAB PO PRN ×2 (11:30)
[2017-03-11] MEDS ORDERED: DEXMEDETOMIDINE INJ 200 MCG in SODIUM CHLORIDE 0.9% INJ 50 ML IV PRN (11:30)
[2017-03-11] MEDS ORDERED: METOPROLOL TARTRATE 5 MG/5 ML VIAL IV PUSH PRN (11:30)
[2017-03-11] MEDS ORDERED: MAGNESIUM SULFATE INJ 2 GM in SODIUM CHLORIDE 0.9% INJ 100 ML IV PRN ×4 (11:30)
[2017-03-11] MEDS ORDERED: ACETAMINOPHEN 325 MG TAB PO PRN (11:30)
[2017-03-11] MEDS ORDERED: Post-op Orders (for Pharmacy) MISC OTHER ONE (11:30)
[2017-03-11] MEDS ORDERED: hydrALAZINE HCL 20 MG/ML VIAL IV PUSH PRN (11:30)
[2017-03-11] MEDS ORDERED: KETOROLAC TROMETHAMINE 30 MG/ML (IVP) VIAL IV PUSH PRN (11:30)
[2017-03-11] MEDS ORDERED: POTASSIUM CHLOR 20 MEQ PREMIX 100 ML IV PRN ×2 (11:30)
[2017-03-11] MEDS ORDERED: ALBUMIN 5% INJ 250 ML IV PRN (11:30)
[2017-03-11] MEDS ORDERED: CALCIUM CHLORIDE INJ 1 GM in SODIUM CHLORIDE 0.9% INJ 100 ML IV PRN (11:30)
[2017-03-11] MEDS ORDERED: ONDANSETRON HCL 4 MG/2 ML VIAL IV PUSH PRN (11:30)
[2017-03-11] MEDS ORDERED: CLEVIDIPINE INJ 50 ML IV PRN (11:30)
[2017-03-11] MEDS ORDERED: RESP: ALBUTEROL 2.5 MG/IPRATROPIUM 0.5 MG NEB (PRN) NEB (11:30)
[2017-03-11] MEDS ORDERED: RESP: RACEPINEPHRINE 2.25% 0.5 ML NEB NEB PRN (11:30)
[2017-03-11] MEDS ORDERED: DEXTROSE 50% IN WATER 50 ML VIAL(D50) IV PUSH PRN (11:30)
[2017-03-11] MEDS ORDERED: ACETAMINOPHEN 650 MG SUPP RECTAL PRN (11:30)
--- NOTE | 2017-03-11 11:33 | PD.OP ---
cc: Aviva Gonzalez MD; Jose Ernandez MD Operative Report Date of Surgery: Mar 11, 2017 Preoperative Diagnosis: (1) CAD (coronary artery disease) (2) Angina pectoris Postoperative Diagnosis: same Procedure: CABG x 3 ROSAS to LAD - good SVG to OM1 - good SVG to RCA - fair EVH Anesthesia: Dr. Eric Surgeon: Aviva Gonzalez Show Design Supervisor(s): SUJIT Perkins Operation and Findings: The risks, benefits, complications, treatment options, and expected outcomes were discussed with the patient. The possibilities of reaction to medication, pulmonary aspiration, perforation of viscus, bleeding, recurrent infection, the need for additional procedures, failure to diagnose a condition, and creating a complication requiring transfusion or operation were discussed with the patient. The patient concurred with the proposed plan, giving informed consent. The site of surgery properly noted/marked. The patient was taken to Operating Room, identified as Steve Melchor and the procedure verified as CABG, EVH, NANCY. A Time Out was held and the above information confirmed. Standard monitoring lines and Cano catheter were placed. General anesthesia was induced. The patient was prepped and draped in a sterile fashion. A median sternotomy was performed and electrocautery was used to obtain hemostasis. The left internal mammary artery was procured as a pedicle from the 7th rib to the 1st rib in the usual manner. Simultaneously left greater saphenous vein was procured from the left leg using a minimally invasive endoscopic technique. The vein was prepared for anastomosis and the leg wound was irrigated and closed in 2 layers. The pericardium was opened and a pericardial sling was created using interrupted 0 silk sutures. The patient was heparinized for cardiopulmonary bypass and the distal mammary pedicle was instrumented for anastomosis. The heart was instrumented for cardiopulmonary bypass in the usual manner. Antegrade blood cardioplegia was employed. The patient was placed on cardiopulmonary bypass. An aortic cross-clamp was applied and the heart was arrested using cold blood cardioplegia. Antegrade cardioplegia was administered after he each anastomosis. After adequate arrest, the distal right coronary circulation was investigated and the distal RCA was opened with a Bergland blade and found to be a 1.5 millimeter diffusely diseased fair target. Saphenous vein was approximated to the RCA artery using a running 7 0 Prolene suture. The graft was measured for length and orientation and the proximal anastomosis was constructed to the ascending aorta using a running 5 0 Prolene suture after creating an aortotomy with a 5 millimeter punch. The 1st circumflex marginal artery was then opened with a Bergland blade and found to be a 1.5 millimeter good target. The OM1 artery was intramyocardial. Saphenous vein was approximated to the OM1 artery using a running 7 0 Prolene suture. The graft was measured for length and orientation and was suspended from the pericardium. The distal LAD was opened with a Bergland blade and found to be a 1.5 millimeter good target. The left internal mammary artery was approximated to the LAD using a running 7 0 Prolene suture. The pedicle was attached to the epicardium using interrupted 5 0 silk suture. The patient was systemically rewarmed and received a hotshot dose of warm blood cardioplegia. The aorta was vented and the proximal anastomosis to the OM1 graft was accomplished using a running 5 0 Prolene suture after creating an aortotomy was a 5 millimeter punch. The cross-clamp was removed and all proximal and distal anastomoses were examined for hemostasis. The patient was weaned from cardiopulmonary bypass. Protamine was given. There was no adverse reaction. Decannulation was carried out without incident. Wound was checked for hemostasis which was obtained using electrocautery. A 36 Tajik mediastinal and 32 Tajik left pleural chest tubes were placed and secured to the skin with 0 silk suture. The sternum was closed with stainless steel wire. The fascia was closed with 1. PDS. The subcutaneous tissue was closed using a running 2-0 Vicryl suture. The skin was closed with 4-0 Monocryl. Sterile dressings were placed. At the end of the operation, all sponge, instruments, and needle counts were correct. The patient was transferred to the CVICU in stable condition. Findings: Fair RCA distal target. Normal LV function XC: 54 min CPB: 56 min Drains: mediastinal x 1 pleural x 1 Complications: none Disposition: to CVICU in stable condition Aviva Gonzalez MD Mar 11, 2017 11:33
--- NOTE | 2017-03-11 12:08 | RSPPFT ---
DATE OF PROCEDURE: 03/10/17 COMMENTS: Spirometry shows FVC of 3.1 at 85% of predicted, FEV1 of 2.5 at 88%, FEV1/FVC ratio is normal. Flow is normal at FEF 25, FEF 50, FEF 75 and FEF 25-75. Flow volume loop indicates a normal pattern. IMPRESSION: 1. Normal spirometry. 2. Post-bronchodilator study was not performed.
--- NOTE | 2017-03-11 13:32 | RADRPT ---
EXAM DATE/TIME: 03/11/2017 12:40 [facility] COMPARISON: CHEST SINGLE AP, March 10, 2017, 9:48. INDICATIONS : Post CABG MEDICAL HISTORY : Cardiovascular disease. seizures SURGICAL HISTORY : CABG. ENCOUNTER: Subsequent ACUITY: 1 day PAIN SCORE: Non-responsive. LOCATION: Bilateral chest FINDINGS: A single portable frontal view of the chest shows interval median sternotomy. Tip of the endotracheal tube 2 cm from the shaneka. Nasogastric tube courses off the inferior margin of the film. A subxiphoi d as well as a left thoracostomy tubes. Right-sided central line. A tiny left apical pneumothorax. No pneumothorax on the right. Mild bibasilar atelectasis. Heart is normal in size. CONCLUSION: Interval median sternotomy with life support lines as detailed above. A tiny left apical pneumothorax . Jose Guadalupe Lomeli Jr., MD on March 11, 2017 at 13:27 Board Certified Radiologist. This report was verified electronically.
[2017-03-11] MEDS: ACETAMINOPHEN 1000 MG/100 ML 100 ML IV SCH ×2 (15:20→21:06)
[2017-03-11] MEDS: AMIODARONE 200 MG TAB PO SCH (15:20)
[2017-03-11] MEDS: POTASSIUM CHLOR 20 MEQ PREMIX 100 ML IV PRN ×2 (15:21→18:15)
--- NOTE | 2017-03-11 15:59 | HHI.FF ---
Face to Face Verification Diagnosis: (1) S/P CABG x 3 (2) PAD (peripheral artery disease) (3) Tobacco abuse (4) CAD (coronary artery disease) Home Health Nursing Order: Signs/symptoms of disease process Medication education-adverse effect Wound care and dressing changes Nursing assessment with vital signs Instructions: Heart and Vascular Surgery patients *Special attention to sternal dressing Mandatory frequency Assess and evaluation, 4 days in a row The next week 3X week 2 times a week for 4 weeks 1 time a week for 5 weeks Schedule Heart and Vascular patients for full 60 day certification period Initial visit Review Open Heart Surgery Discharge Instructions (Sternal precautions, Activity, Elastic hose, Incision care, Driving, Incentive spirometry, Smoking, [place], Work and other) Need Betadine to paint incision Medication reconciliation Importance of follow up care/ check on appointments Make calendar record temperature daily When to call [facility] at Home nurse, review instructions, phone list Incentive Spirometry, demonstration Visit 1- Begin discharge instruction for patient family and/ or caregiver using teach back method- Signs and symptoms of infection Disease characteristics Medicines and side effects Foods and nutrition/ appetite Infection control/ hand washing/ hygiene Visit 2- Continue teaching Discharge instructions- include additional information on smoking cessation , sternal dressing (sternal vac) Visit 3- Continue teaching- Cough and deep breathing, incision monitoring. Choose my plate Visit 4- Continue teaching- Discuss limitations Discuss how they are feeling Discuss progress toward goals Remaining visits- continue teaching and monitoring PREVENA Single Use Negative Wound Therapy System Caregiver Instruction Sheet 1. A Prevena dressing system was applied to the chest incision during surgery , to promote wound healing. It works via a suction device (negative pressure wound therapy) to remove low to moderate levels of exudate (drainage) and infectious materials. We recommend that the device stay in place for up to seven days, from day of surgery. 2. Day of Surgery___03/11/17 Day of Removal ___03/18/17 3. The dressing should only be removed by a health lawn care technician. Please arrange removal of device to coincide with Home Health visit and or with Nursing staff at Rehab 4. If skin reddening or irritation of skin occurs, or excessive drainage, please notify the Cardiovascular Surgeons office at [phone]. 5. Light showering is permissible; however the pump should be disconnected and placed in safe location, where it will not get wet. The dressing should not be exposed to direct spray or submerged in water. No bath tub / shower only. Ensure the end of the tubing attached to the dressing is facing down so that water does not enter the top of the tube. 6. To remove Prevena dressing: press purple button to turn off device / remove the suction. Then disconnect the tubing from the pump. The fixation strips should be stretched away from the skin and the dressing lifted at one corner and peeled back until it has been fully removed. 7. After removal, it is ok to shower daily using liquid dial soap and clean wash cloth, rinse and pat dry, and leave incision open to air dry. For any concerns regarding Prevena dressing, and or wounds, please contact Gloria Laura, patient navigator at [phone] or notify the Cardiovascular Surgeons office at [phone]. Incentive spirometry Q1 hr x 10, while awake, also use acapella device hourly whole awake Sternal Breast Bone Precautions: NO pushing or pulling, ( pt must use sternal pillow to support chest with all activities and with coughing ( takes up to 3 months breast bone to heal ) Daily incision care: ok to shower daily, no tub bath. Wash all incisions with liquid dial soap, clean wash cloth to each site, rinse and pat dry. Observe for any signs of infection, such as drainage which is dark yellow, castillo, green or foul smelling. Immediately report to the surgeon any drainage from the chest incision, or legs, and for any abnormal drainage from the chest tube sites. Notify surgeon if any temp >101.5 degrees F. When specialty dressing removed/ or if you do not have one, continue to shower daily as above, then rinse and pat incision dry and paint with betadine daily x 5 days. Allow steri strips to fall off if you have any. Avoid lotions, creams, salves, oils, etc. for the first month Please see attached forms for additional instructions regarding post Open Heart specialty wound vacuum dressings. FLORIAN or Prevena , Dressing to be removed by Nursing staff on __03/18/[address] Gonzalez patients , please obtain CBC, BMP, PA & Lat CXR in 2 weeks, results to Dr. Gonzalez ( prescription will be given) ( ) (Tele: [phone]) , F/U appointment: as per DC instructions: PCP in 2 weeks, CV surgeon 2 weeks, Tank House Supervisor 3-4 weeks For any questions regarding incisions/ dressing / meds / post op care or above Symptoms, Friday 8am-5pm Heart & Vascular Surgery Office ( Dr. James & Dr. Gonzalez), After Hours / Nights (5pm -8am) Weekends and Holidays Please call [facility] Card[facility] ([facility]) Charge Nurse I have seen patient Steve Melchor on 03/11/17. My clinical findings support the need for the requested home health care services because: Deconditioned w/ increased weakness I certify that my clinical findings support that this patient is homebound because: Post-op weakness Zoe Whitney Mar 11, 2017 15:59
[2017-03-11] MEDS ORDERED: INSULIN REGULAR (IV INFUSION) 100 UNITS in SODIUM CHLORIDE 0.9% INJ 99 ML IV PRN (16:00)
[2017-03-11] MEDS ORDERED: CALCIUM CHLORIDE INJ 1 GM in SODIUM CHLORIDE 0.9% INJ 100 ML IV ONE (16:00)
[2017-03-11] MEDS: PHENYTOIN SODIUM 100 MG CAP PO SCH (21:04)
[2017-03-11] MEDS: GABAPENTIN 300 MG CAP PO SCH (21:04)
[2017-03-11] MEDS: DOCUSATE SODIUM 50 MG/SENNA 8.6 MG TAB PO SCH (21:04)
[2017-03-11] MEDS: ATORVASTATIN 40 MG TAB PO SCH (21:05)
[2017-03-12] VITALS (13 sets, daily range): BP systolic 109–146; BP diastolic 60–88; PULSE 16–98; RESP 16–18; TEMP 98–98.6; O2SAT 91–98
[2017-03-12] MEDS: AMIODARONE 200 MG TAB PO SCH ×4 (00:16→21:42)
[2017-03-12] MEDS: carBAMazepine 200 MG TAB PO SCH (00:30)
[2017-03-12] MEDS: ACETAMINOPHEN 1000 MG/100 ML 100 ML IV SCH ×2 (02:00→07:53)
[2017-03-12 04:40] LABS: HEMATOCRIT 30.9 % (39.0-51.0); MEAN CELL VOLUME 98.7 FL (80.0-100.0); MEAN CORPUSCULAR HEMOGLOBIN 33.1 PG (27.0-34.0); MEAN CORPUSCULAR HGB CONC 33.6 % (32.0-36.0); PLATELET COUNT 125 TH/MM3 (150-450); RED BLOOD COUNT 3.13 MIL/MM3 (4.50-5.90); RED CELL DISTRIBUTION WIDTH 13.1 % (11.6-17.2); REVIEW FLAG FINAL; WHITE BLOOD COUNT 13.5 TH/MM3 (4.0-11.0)
--- NOTE | 2017-03-12 05:11 | RADRPT ---
EXAM DATE/TIME: 03/12/2017 04:14 [facility] COMPARISON: CHEST SINGLE AP, March 11, 2017, 12:40. INDICATIONS : Short of breath. MEDICAL HISTORY : Cardiovascular disease. seizures SURGICAL HISTORY : CABG. ENCOUNTER: Subsequent ACUITY: 4 - 6 days PAIN SCORE: 0/10 LOCATION: Bilateral chest FINDINGS: A single view of the chest demonstrates minimal bibasilar densities. Status post CABG. Mediastinal an d left-sided chest tube and right jugular line are stable in position. Tiny left apical pneumothorax. Endotracheal tube and nasogastric tube have been removed. Osseous structures are intact. CONCLUSION: 1. Bibasilar atelectasis. 2. Status post CABG. 3. Tiny left apical pneumothorax. Kingston Saucedo MD on March 12, 2017 at 5:08 Board Certified Radiologist. This report was verified electronically.
[2017-03-12 05:17] LABS: MAGNESIUM 2.2 MG/DL (1.5-2.5); POTASSIUM 4.3 MEQ/L (3.5-5.1)
[2017-03-12] MEDS: PANTOPRAZOLE SOD 40 MG DELAYED RELEASE TAB PO SCH (06:13)
[2017-03-12] MEDS: SODIUM CHLORIDE 0.9% FLUSH 10 ML FLUSH IV FLUSH SCH ×2 (09:00→21:57)
[2017-03-12] MEDS ORDERED: GLUCAGON 1 MG/ML VIAL OTHER PRN (09:15)
[2017-03-12] MEDS ORDERED: DEXTROSE 50% IN WATER 50 ML VIAL(D50) IV PUSH PRN (09:15)
[2017-03-12] MEDS ORDERED: SOD PHOSPHATE/SOD BIPHOSPHATE (ADULT) ENEMA 133ML RECTAL PRN (09:15)
[2017-03-12] MEDS ORDERED: BISACODYL 10 MG SUPP RECTAL PRN (09:15)
[2017-03-12] MEDS: oxyCODONE/ACETAMINOPHEN 5 MG/325 MG TAB PO PRN ×3 (09:46→21:42)
[2017-03-12] MEDS: ASPIRIN 81 MG CHEW TAB PO SCH (09:47)
[2017-03-12] MEDS: CLOPIDOGREL 75 MG TAB PO SCH (13:25)
[2017-03-12] MEDS: METOPROLOL TARTRATE 25 MG TAB PO SCH ×2 (13:26→21:43)
[2017-03-12] MEDS: MAGNESIUM HYDROXIDE SUSP 30 ML CUP PO SCH (13:26)
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
[2017-03-12] MEDS: INSULIN ASPART SUPPLEMENTAL SCALE SQ SCH ×3 (14:00→21:55)
[2017-03-12] MEDS: RESP: ALBUTEROL 2.5 MG/IPRATROPIUM 0.5 MG NEB (SCH) NEB (20:36)
--- NOTE | 2017-03-12 21:16 | EKG ---
Date Performed: 03/12/2017 Time Performed: 04:52:26 PTAGE: 71 years EKG: Sinus rhythm Anterior T wave changes are nonspecific Borderline ECG NO PREVIOUS TRACING DOCTOR: Melanie Mcknight Interpretating Date/Time 03/12/2017 21:15:16
[2017-03-12] MEDS: SENNOSIDES 8.6 MG TAB PO SCH (21:41)
[2017-03-12] MEDS: DOCUSATE SODIUM 100 MG CAP PO SCH (21:41)
[2017-03-12] MEDS: ATORVASTATIN 40 MG TAB PO SCH (21:42)
[2017-03-12] MEDS: GABAPENTIN 300 MG CAP PO SCH (21:42)
[2017-03-12] MEDS: PHENYTOIN SODIUM 100 MG CAP PO SCH (21:58)
[2017-03-13] VITALS (26 sets, daily range): BP systolic 101–135; BP diastolic 60–80; PULSE 78–98; RESP 16–20; TEMP 98.1–99; O2SAT 92–99
[2017-03-13] MEDS: INSULIN ASPART SUPPLEMENTAL SCALE SQ SCH ×5 (02:00→21:00)
[2017-03-13] MEDS: oxyCODONE/ACETAMINOPHEN 5 MG/325 MG TAB PO PRN ×3 (02:57→21:52)
[2017-03-13] MEDS: AMIODARONE 200 MG TAB PO SCH ×3 (05:31→21:30)
[2017-03-13] MEDS: PANTOPRAZOLE SOD 40 MG DELAYED RELEASE TAB PO SCH (05:31)
[2017-03-13 06:29] LABS: AUTOMATED NEUTROPHIL # 13.6 TH/MM3 (1.8-7.7); BASOPHIL % 0.2 % (0.0-2.0); HEMATOCRIT 28.1 % (39.0-51.0); HEMO FLAGS DIFF FINAL; LYMPH % 12.1 % (9.0-44.0); MEAN CORPUSCULAR HEMOGLOBIN 33.3 PG (27.0-34.0); MEAN CORPUSCULAR HGB CONC 33.3 % (32.0-36.0); MONO % 4.6 % (0.0-8.0); NEUT % 83.1 % (16.0-70.0); PLATELET COUNT 138 TH/MM3 (150-450); RED BLOOD COUNT 2.81 MIL/MM3 (4.50-5.90); RED CELL DISTRIBUTION WIDTH 13.1 % (11.6-17.2); WHITE BLOOD COUNT 16.4 TH/MM3 (4.0-11.0)
[2017-03-13 06:50] LABS: BICARBONATE 29.7 MEQ/L (21.0-32.0); MAGNESIUM 2.2 MG/DL (1.5-2.5); POTASSIUM 3.9 MEQ/L (3.5-5.1)
[2017-03-13] MEDS: MAGNESIUM HYDROXIDE SUSP 30 ML CUP PO SCH (08:25)
[2017-03-13] MEDS: ASPIRIN 81 MG CHEW TAB PO SCH (08:26)
[2017-03-13] MEDS: CLOPIDOGREL 75 MG TAB PO SCH (08:27)
[2017-03-13] MEDS: DOCUSATE SODIUM 100 MG CAP PO SCH ×2 (08:27→21:30)
[2017-03-13] MEDS: MULTIVITAMINS/MINERALS THERAPEUTIC TAB PO SCH (08:27)
[2017-03-13] MEDS: METOPROLOL TARTRATE 25 MG TAB PO SCH ×2 (08:27→21:31)
[2017-03-13] MEDS: SODIUM CHLORIDE 0.9% FLUSH 10 ML FLUSH IV FLUSH SCH ×2 (08:28→21:30)
[2017-03-13] MEDS: POLYETHYLENE GLYCOL 17 GM PKG PO SCH (08:28)
[2017-03-13] MEDS: RESP: ALBUTEROL 2.5 MG/IPRATROPIUM 0.5 MG NEB (SCH) NEB ×3 (08:58→20:00)
--- NOTE | 2017-03-13 09:45 | RADRPT ---
EXAM DATE/TIME: 03/13/2017 09:26 [facility] COMPARISON: CHEST SINGLE AP, March 12, 2017, 4:14. INDICATIONS : Evaluate for pneumothorax MEDICAL HISTORY : Cardiovascular disease. seizures SURGICAL HISTORY : CABG. ENCOUNTER: Subsequent ACUITY: 4 - 6 days PAIN SCORE: 3/10 LOCATION: chest FINDINGS: Right internal jugular catheter tip in the mid superior vena cava. Left lower chest tube and a media stinal drain in stable position. There is some minimal blunting of the left costophrenic angle. No residual left apical pneumothorax. Mild patchy opacities in the left infrahilar region without conso lidation. The right lung is clear. CONCLUSION: No residual left apical pneumothorax. Persistent mild patchy infiltrates retrocardiac region. Jose Guadalupe Aguayo MD on March 13, 2017 at 9:41 Board Certified Radiologist. This report was verified electronically.
[2017-03-13] MEDS ORDERED: FUROSEMIDE 40 MG/4 ML VIAL IV PUSH ONE (10:30)
[2017-03-13] MEDS ORDERED: POTASSIUM CHLORIDE 10 MEQ CONTROLLED RELEASE TAB PO ONE (10:30)
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
[2017-03-13] MEDS ORDERED: POTASSIUM CHLORIDE 20 MEQ CONTROLLED RELEASE TAB PO ONE (18:00)
[2017-03-13] MEDS ORDERED: FUROSEMIDE 20 MG/2 ML VIAL IV PUSH ONE (18:00)
[2017-03-13] MEDS: ATORVASTATIN 40 MG TAB PO SCH (21:30)
[2017-03-13] MEDS: GABAPENTIN 300 MG CAP PO SCH (21:30)
[2017-03-13] MEDS: SENNOSIDES 8.6 MG TAB PO SCH (21:31)
[2017-03-13] MEDS: PHENYTOIN SODIUM 100 MG CAP PO SCH (21:32)
[2017-03-14] VITALS (28 sets, daily range): BP systolic 95–114; BP diastolic 60–68; PULSE 76–90; RESP 16–18; TEMP 97.9–98.4; O2SAT 94–98
[2017-03-14 04:52] LABS: AUTOMATED NEUTROPHIL # 10.7 TH/MM3 (1.8-7.7); BASOPHIL % 0.3 % (0.0-2.0); HEMATOCRIT 27.3 % (39.0-51.0); HEMO FLAGS DIFF FINAL; LYMPHOCYTE # 1.7 TH/MM3 (1.0-4.8); MEAN CELL VOLUME 99.7 FL (80.0-100.0); MEAN CORPUSCULAR HEMOGLOBIN 34.2 PG (27.0-34.0); MEAN CORPUSCULAR HGB CONC 34.3 % (32.0-36.0); MONO % 6.6 % (0.0-8.0); NEUT % 80.1 % (16.0-70.0); PLATELET COUNT 154 TH/MM3 (150-450); RED BLOOD COUNT 2.73 MIL/MM3 (4.50-5.90); RED CELL DISTRIBUTION WIDTH 13.2 % (11.6-17.2); WHITE BLOOD COUNT 13.4 TH/MM3 (4.0-11.0)
[2017-03-14 05:18] LABS: BICARBONATE 31.3 MEQ/L (21.0-32.0); MAGNESIUM 2.5 MG/DL (1.5-2.5); POTASSIUM 3.4 MEQ/L (3.5-5.1)
[2017-03-14] MEDS: AMIODARONE 200 MG TAB PO SCH ×3 (05:51→22:09)
[2017-03-14] MEDS: PANTOPRAZOLE SOD 40 MG DELAYED RELEASE TAB PO SCH (05:51)
[2017-03-14] MEDS: RESP: ALBUTEROL 2.5 MG/IPRATROPIUM 0.5 MG NEB (SCH) NEB ×3 (07:28→20:59)
[2017-03-14] MEDS: INSULIN ASPART SUPPLEMENTAL SCALE SQ SCH ×4 (08:00→21:00)
[2017-03-14] MEDS: POLYETHYLENE GLYCOL 17 GM PKG PO SCH (09:00)
[2017-03-14] MEDS: MAGNESIUM HYDROXIDE SUSP 30 ML CUP PO SCH (09:00)
[2017-03-14] MEDS: ASPIRIN 81 MG CHEW TAB PO SCH (09:06)
[2017-03-14] MEDS: METOPROLOL TARTRATE 25 MG TAB PO SCH ×2 (09:06→22:10)
[2017-03-14] MEDS: DOCUSATE SODIUM 100 MG CAP PO SCH ×2 (09:06→21:00)
[2017-03-14] MEDS: MULTIVITAMINS/MINERALS THERAPEUTIC TAB PO SCH (09:07)
[2017-03-14] MEDS: SODIUM CHLORIDE 0.9% FLUSH 10 ML FLUSH IV FLUSH SCH ×2 (09:07→22:08)
[2017-03-14] MEDS: CLOPIDOGREL 75 MG TAB PO SCH (09:07)
--- NOTE | 2017-03-14 10:01 | HHI.PR ---
Subjective Remarks Follow-up CABG. Improving dyspnea and pleuritic chest pain tolerating 2 L nasal cannula. Discussed with RN and CVT PREP ROOM SUPERVISOR. Objective Vitals Vital Signs Date Time Temp Pulse Resp B/P (MAP) Pulse Ox O2 Delivery O2 Flow Rate FiO2 03/14/17 07:30 95 Nasal Cannula 2.00 03/14/17 07:18 Nasal Cannula 2.00 03/14/17 07:00 83 03/14/17 06:00 82 03/14/17 05:02 84 03/14/17 04:00 89 03/14/17 03:00 82 03/14/17 03:00 98.4 85 16 98/63 (75) 97 03/14/17 03:00 97 Nasal Cannula 2.00 03/14/17 02:00 78 03/14/17 01:00 78 03/14/17 00:00 76 03/13/17 23:15 16 03/13/17 23:00 96 Nasal Cannula 2.00 03/13/17 23:00 84 03/13/17 23:00 98.4 81 16 107/68 (81) 96 03/13/17 22:00 92 03/13/17 21:00 98 03/13/17 20:00 94 Nasal Cannula 2.00 03/13/17 20:00 92 03/13/17 19:00 94 03/13/17 19:00 94 Nasal Cannula 2.00 03/13/17 19:00 98.6 96 18 102/65 (77) 94 03/13/17 18:00 92 03/13/17 17:00 94 03/13/17 16:00 94 03/13/17 15:00 Nasal Cannula 2.00 03/13/17 15:00 98.1 93 18 106/60 (75) 96 03/13/17 15:00 92 03/13/17 14:00 86 03/13/17 13:00 84 03/13/17 12:00 80 03/13/17 11:00 78 03/13/17 11:00 98.3 81 18 101/69 (80) 96 03/13/17 11:00 Nasal Cannula 2.00 I/O 03/13/17 03/13/17 03/13/17 03/14/17 03/14/17 03/14/17 07:00 15:00 23:00 07:00 15:00 23:00 Intake Total 460 ml 450 ml 360 ml Output Total 440 ml 975 ml 910 ml Balance 20 ml -525 ml -550 ml Intake Oral 360 ml 450 ml 360 ml IV Total 100 ml Output Urine Total 300 ml 800 ml 750 ml Chest Tube Drainage Total 140 ml 175 ml 160 ml # Bowel Movements 1 Result Diagram: 03/14/17 0415 03/14/17 0415 Imaging Last Impressions Chest X-Ray 03/13/17 0000 Signed Impressions: Service Date/Time: February 09:26 - CONCLUSION: No residual left apical pneumothorax. Persistent mild patchy infiltrates retrocardiac region. Jose Guadalupe Aguayo MD Lower Extremity Ultrasound 03/07/17 0000 Signed Impressions: Service Date/Time: Tuesday, March 07, 2017 18:32 - CONCLUSION: Venous mapping exam is described. Isaac Nettles MD Carotid Artery Ultrasound 03/07/17 0000 Signed Impressions: Service Date/Time: Tuesday, March 07, 2017 18:06 - CONCLUSION: No evidence of anatomic or physiologic stenosis. Minimal nonstenotic atherosclerotic plaquing of the right internal carotid initial segment and the left bulb as well as initial segment of the internal carotid Alex De La Torre MD Objective Remarks GENERAL: This is a well-nourished, well-developed patient, in no apparent distress. On 2 L nasal cannula SKIN: No rashes, ecchymoses or lesions. Cool and dry. CARDIOVASCULAR: Regular rate and rhythm without murmurs, gallops, or rubs. Ant chest with dressing and CT in place RESPIRATORY: Decreased Breath sounds equal bilaterally. GASTROINTESTINAL: Abdomen soft, non-tender, nondistended. No guarding. MUSCULOSKELETAL: Extremities without clubbing, cyanosis, or edema. No joint tenderness, effusion, or edema noted. No calf tenderness. Negative Homans sign bilaterally. NEUROLOGICAL: Awake and alert. Nonfocal Procedures Cardiac catheterization, CABG A/P Problem List: (1) CAD (coronary artery disease) ICD Code: I25.10 - Atherosclerotic heart disease of [place] coronary artery without angina pectoris Assessment and Plan This is a 71-year-old male with history of peripheral vascular disease, ectatic aorta, BPH, skin cancer, seizure disorder, COPD and hyperlipidemia. He underwent elective cardiac catheterization showing two-vessel disease s/p CABG. CAD status post cardiac catheterization/CABG. Stable. Continue aspirin, Plavix , Lopressor, Lipitor and amiodarone. CT still with significant drainage 335 mL in the past 24 hours management per CVT Fluid overload. Chest x-ray image interpreted by me. Status post IV Lasix. Stable wean and discontinue oxygen to keep saturation at least 92% Seizure disorder with last seizure episode years ago maintained on Dilantin, Tegretol and Neurontin. Subtherapeutic levels s/p replacement. Seizure precautions COPD not oxygen dependent on nebulizations. He has quit smoking 10 years ago has a history of 60-80 pack years. Stable Hyperlipidemia on Lipitor. [place] and vomiting. Etiology not clear could be new meds or combination. Resolved DVT prophylaxis with SCD. Patient ambulatory Discharge Planning Not ready for discharge patient still has CT Last Penny MD Mar 14, 2017 10:01
[2017-03-14] MEDS ORDERED: POTASSIUM CHLORIDE 10 MEQ CONTROLLED RELEASE TAB PO ONE ×3 (11:00→14:00)
[2017-03-14] MEDS: carBAMazepine 200 MG TAB PO SCH ×2 (12:17→22:10)
[2017-03-14] MEDS ORDERED: FUROSEMIDE 20 MG/2 ML VIAL IV PUSH ONE (14:00)
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
[2017-03-14] MEDS ORDERED: FURO40TA PO (16:29)
[2017-03-14] MEDS ORDERED: AMIO200T PO (16:29)
[2017-03-14] MEDS ORDERED: DOCU1CAP39 PO (16:29)
[2017-03-14] MEDS ORDERED: METO25TA3 PO (16:29)
[2017-03-14] MEDS ORDERED: THERM PO (16:29)
[2017-03-14] MEDS ORDERED: POTA-163 PO (16:29)
[2017-03-14] MEDS ORDERED: CLOP75TA PO (16:29)
[2017-03-14] MEDS ORDERED: WALKER WHEELS/F1 MIS (16:30)
[2017-03-14] MEDS ORDERED: PERC5TAB12 PO (16:30)
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
[2017-03-14] MEDS: SENNOSIDES 8.6 MG TAB PO SCH (21:00)
[2017-03-14] MEDS: oxyCODONE/ACETAMINOPHEN 5 MG/325 MG TAB PO PRN (22:08)
[2017-03-14] MEDS: PHENYTOIN SODIUM 100 MG CAP PO SCH (22:09)
[2017-03-14] MEDS: ATORVASTATIN 40 MG TAB PO SCH (22:10)
[2017-03-14] MEDS: GABAPENTIN 300 MG CAP PO SCH (22:10)
[2017-03-15] VITALS (11 sets, daily range): BP systolic 96–115; BP diastolic 61–65; PULSE 70–84; RESP 16–18; TEMP 98–98.4; O2SAT 79–94
[2017-03-15 05:27] LABS: BICARBONATE 29.6 MEQ/L (21.0-32.0); POTASSIUM 3.5 MEQ/L (3.5-5.1)
--- NOTE | 2017-03-15 05:31 | RADRPT ---
EXAM DATE/TIME: 03/15/2017 04:25 [facility] COMPARISON: CHEST SINGLE AP, March 13, 2017, 9:26. INDICATIONS : Shortness of breath, possible pneumothorax. MEDICAL HISTORY : Cardiovascular disease. Seizures SURGICAL HISTORY : CABG. ENCOUNTER: Subsequent ACUITY: 1 week PAIN SCORE: 4/10 LOCATION: Bilateral chest FINDINGS: Median sternotomy changes are again noted. Mediastinal drain, left chest tube and the right IJ line h ave all been removed. There is mild consolidation peripherally of the left MID lung. No pleural effus ion demonstrated. No pneumothorax. Heart size stable, within normal limits. CONCLUSION: 1. Mild peripheral left midlung consolidation. 2. Lines and tubes have been removed. Maikel Frederick MD on March 15, 2017 at 5:28 Board Certified Radiologist. This report was verified electronically.
[2017-03-15] MEDS: AMIODARONE 200 MG TAB PO SCH (06:09)
[2017-03-15] MEDS: PANTOPRAZOLE SOD 40 MG DELAYED RELEASE TAB PO SCH (06:09)
[2017-03-15] MEDS: INSULIN ASPART SUPPLEMENTAL SCALE SQ SCH (08:00)
[2017-03-15] MEDS: RESP: ALBUTEROL 2.5 MG/IPRATROPIUM 0.5 MG NEB (SCH) NEB (08:04)
[2017-03-15] MEDS: METOPROLOL TARTRATE 25 MG TAB PO SCH (08:16)
[2017-03-15] MEDS: ASPIRIN 81 MG CHEW TAB PO SCH (08:16)
[2017-03-15] MEDS: MULTIVITAMINS/MINERALS THERAPEUTIC TAB PO SCH (08:16)
[2017-03-15] MEDS: POLYETHYLENE GLYCOL 17 GM PKG PO SCH (08:17)
[2017-03-15] MEDS: CLOPIDOGREL 75 MG TAB PO SCH (08:17)
[2017-03-15] MEDS: carBAMazepine 200 MG TAB PO SCH (08:17)
[2017-03-15] MEDS: DOCUSATE SODIUM 100 MG CAP PO SCH (08:17)
[2017-03-15] MEDS: MAGNESIUM HYDROXIDE SUSP 30 ML CUP PO SCH (08:18)
[2017-03-15] MEDS: SODIUM CHLORIDE 0.9% FLUSH 10 ML FLUSH IV FLUSH SCH (08:19)
--- NOTE | 2017-03-15 09:10 | HHI.PR ---
Subjective Remarks Follow-up CABG. Patient doing okay tolerating room air. Objective Vitals Vital Signs Date Time Temp Pulse Resp B/P (MAP) Pulse Ox O2 Delivery O2 Flow Rate FiO2 03/15/17 09:00 84 03/15/17 08:00 78 03/15/17 07:00 77 03/15/17 07:00 98.0 79 18 115/65 (82) 94 03/15/17 06:00 79 03/15/17 05:00 78 03/15/17 04:00 78 03/15/17 03:00 98.4 75 16 96/61 (73) 94 03/15/17 03:00 72 03/15/17 02:00 72 03/15/17 01:00 70 03/15/17 00:00 72 03/14/17 23:48 16 03/14/17 23:00 76 03/14/17 23:00 98.0 87 16 102/67 (79) 97 03/14/17 22:00 88 03/14/17 21:00 84 03/14/17 20:59 96 21 03/14/17 20:00 80 03/14/17 19:00 84 03/14/17 19:00 98.2 84 18 114/68 (83) 97 03/14/17 18:08 81 03/14/17 17:57 85 03/14/17 16:03 81 03/14/17 15:59 82 03/14/17 15:57 98.3 82 18 95/60 (72) 94 03/14/17 15:57 94 Room Air 03/14/17 14:05 81 03/14/17 13:13 84 03/14/17 12:02 78 03/14/17 11:48 98 Nasal Cannula 2.00 03/14/17 11:48 97.9 77 18 104/64 (77) 98 03/14/17 11:00 85 03/14/17 10:00 86 I/O 03/14/17 03/14/17 03/14/17 03/15/17 03/15/17 03/15/17 07:00 15:00 23:00 07:00 15:00 23:00 Intake Total 360 ml 640 ml 360 ml Output Total 910 ml 800 ml 550 ml Balance -550 ml -160 ml -190 ml Intake Oral 360 ml 640 ml 360 ml Output Urine Total 750 ml 800 ml 550 ml Chest Tube Drainage Total 160 ml # Bowel Movements 1 1 Result Diagram: 03/14/17 0415 03/15/17 0408 Objective Remarks GENERAL: This is a well-nourished, well-developed patient, in no apparent distress. On room air SKIN: No rashes, ecchymoses or lesions. Cool and dry. CARDIOVASCULAR: Regular rate and rhythm without murmurs, gallops, or rubs. Ant chest with dressing RESPIRATORY: Decreased Breath sounds equal bilaterally. GASTROINTESTINAL: Abdomen soft, non-tender, nondistended. No guarding. MUSCULOSKELETAL: Extremities without clubbing, cyanosis, or edema. No joint tenderness, effusion, or edema noted. No calf tenderness. Negative Homans sign bilaterally. NEUROLOGICAL: Awake and alert. Nonfocal Procedures Cardiac catheterization, CABG A/P Problem List: (1) CAD (coronary artery disease) ICD Code: I25.10 - Atherosclerotic heart disease of [place] coronary artery without angina pectoris (2) Angina pectoris ICD Code: I20.9 - Angina pectoris, unspecified Status: Acute (3) Tobacco abuse ICD Code: Z72.0 - Tobacco use Status: Chronic (4) PAD (peripheral artery disease) ICD Code: I73.9 - Peripheral vascular disease, unspecified Status: Chronic (5) Seizure disorder ICD Code: G40.909 - Epilepsy, unspecified, not intractable, without status epilepticus Status: Chronic (6) S/P CABG x 3 ICD Code: Z95.1 - Presence of aortocoronary bypass graft Assessment and Plan This is a 71-year-old male with history of peripheral vascular disease, ectatic aorta, BPH, skin cancer, seizure disorder, COPD and hyperlipidemia. He underwent elective cardiac catheterization showing two-vessel disease s/p CABG. CAD status post cardiac catheterization/CABG. Stable. Continue aspirin, Plavix , Lopressor, Lipitor and amiodarone. CT still with significant drainage 335 mL in the past 24 hours management per CVT Fluid overload. Chest x-ray image interpreted by me. Status post IV Lasix. Stable tolerating room air Seizure disorder with last seizure episode years ago maintained on Dilantin, Tegretol and Neurontin. Subtherapeutic levels s/p replacement. Seizure precautions COPD not oxygen dependent on nebulizations. He has quit smoking 10 years ago has a history of 60-80 pack years. Stable Hyperlipidemia on Lipitor. [place] and vomiting. Etiology not clear could be new meds. Resolved DVT prophylaxis with SCD. Patient ambulatory Last Penny MD Mar 15, 2017 09:10
[2017-03-16] MEDS ORDERED: LEVA750T9 PO (10:28)
== END 2017-03-15 12:09 | DRG 234 ==
LOC: HDOC 07:21 → HDIC 07:22 → HCIN 13:47 → HDOC 14:26 → HCPC 03-08 20:47 → HCVI 03-11 12:00 → HCPC 03-12 12:47
PROVIDERS: ADMIT Thoracic Surgery (Cardiothoracic Vascular Surgery); ATTEND Thoracic Surgery (Cardiothoracic Vascular Surgery)
PROC: 4A023N7 Measurement of Cardiac Sampling and Pressure, Left Heart, Percutaneous Approach (ICD-10-PCS; 2017-03-07)
PROC: B2111ZZ Fluoroscopy of Multiple Coronary Arteries using Low Osmolar Contrast (ICD-10-PCS; 2017-03-07)
PROC: 02100Z9 Bypass Coronary Artery, One Artery from Left Internal Mammary, Open Approach (ICD-10-PCS; 2017-03-11)
PROC: 06BQ4ZZ Excision of Left Saphenous Vein, Percutaneous Endoscopic Approach (ICD-10-PCS; 2017-03-11)
PROC: 5A1221Z Performance of Cardiac Output, Continuous (ICD-10-PCS; 2017-03-11)
PROC: B246ZZ4 Ultrasonography of Right and Left Heart, Transesophageal (ICD-10-PCS; 2017-03-11)
PROC: 021109W Bypass Coronary Artery, Two Arteries from Aorta with Autologous Venous Tissue, Open Approach (ICD-10-PCS; principal; 2017-03-11 07:30)
DX: I25.110 Atherosclerotic heart disease of native coronary artery with unstable angina pectoris (principal); E87.70 Fluid overload, unspecified; J93.9 Pneumothorax, unspecified; J44.9 Chronic obstructive pulmonary disease, unspecified; G40.909 Epilepsy, unspecified, not intractable, without status epilepticus; N40.0 Benign prostatic hyperplasia without lower urinary tract symptoms; I73.9 Peripheral vascular disease, unspecified; E78.5 Hyperlipidemia, unspecified; I77.819 Aortic ectasia, unspecified site; I10 Essential (primary) hypertension; F10.21 Alcohol dependence, in remission; F12.90 Cannabis use, unspecified, uncomplicated; Z85.828 Personal history of other malignant neoplasm of skin; Z87.891 Personal history of nicotine dependence
CPT/HCPCS: 71010; 76937; 80048; 80053; 80156; 80185; 81001; 82948; 83036; 83690; 83735; 84100; 85025; 85027; 85576; 85610; 85730; 86850; 86900; 86901; 86920; 87070; 87205; 87641; 93005; 93306; 93458; 93880; 93970; 93998; 94002; 94010; 94150; 94640; 94664; 94667; 94668; 99152; C1769; C1893; J0131; J0690; J1644; J1815; J1940; J2060; J2150; J2250; J2405; J2440; J2930; J3010; J3370; J3480; J7030; P9045; P9047; Q9967